=== PATIENT | male | born 1960 | race Caucasian/White ===

== ENCOUNTER 2020-04-09 13:16 | Emergency (ER) | payer OTHER, SELFPAY ==
--- NOTE | 2020-04-09 13:55 | XR_ITS ---
EXAMINATION: XR CHEST CLINICAL INFORMATION: Chest pain. COMPARISON: 10/23/18. TECHNIQUE: Frontal view of the chest was obtained. FINDINGS: No significant abnormality is noted involving the heart, lungs, mediastinum, bony thorax or soft tissues. XR/XR chest 1V IMPRESSION: Unremarkable examination.
--- NOTE | 2020-04-09 13:55 | ECG_ITS ---
Test Reason : CP Blood Pressure : / mmHG Vent. Rate : 089 BPM Atrial Rate : 089 BPM P-R Int : 178 ms QRS Dur : 094 ms QT Int : 382 ms P-R-T Axes : 029 067 031 degrees QTc Int : 464 ms Normal sinus rhythm Possible Left atrial enlargement Borderline ECG When compared with ECG of 07-JUN-2008 12:55, Heart rate has increased Referred By: Shyla Vance Electronically Signed By:TIANNA JAQUEZ MD
--- NOTE | 2020-04-09 13:56 | ED_ITS ---
HPI - Chest Pain General Chief Complaint: Chest Pain Stated Complaint: chest pain Time Seen by Provider: 04/09/20 13:54 Source: patient Mode of arrival: ambulatory Limitations: no limitations History of Present Illness HPI narrative: 60 y/o male with PMH of COPD, pre-diabetes, obesity, active heavy smoker, HLD presenting with non-radiating substernal chest pain that started yesterday at 2:30 pm while he was at work walking around. He describes it as aching, non-radiating. It was associated with some nausea and sweating when it started. He states laying down flat makes it better but it doesn't completely go away. He had knee surgery in February. No history of cardiac disease in himself or his family. No personal or family history of clots. Related Data Home Medications Medication Instructions Recorded Confirmed albuterol sulfate [ProAir HFA] 1 inh INHALATION QID PRN 04/09/20 04/09/20 gabapentin 300 mg PO DAILY 04/09/20 04/09/20 ibuprofen 800 mg PO Q8H PRN 04/09/20 04/09/20 latanoprost (PF) 1 drp OPHTHALMIC (EYE) QPM 04/09/20 04/09/20 umeclidinium-vilanterol [Anoro 1 inh INHALATION DAILY 04/09/20 04/09/20 Ellipta] valsartan-hydrochlorothiazide 1 tab PO DAILY 04/09/20 04/09/20 Previous Rx's Medication Instructions Recorded pantoprazole [Protonix] 40 mg PO DAILY #14 tab 04/09/20 Allergies Allergy/AdvReac Type Severity Reaction Status Date / Time hydrocodone [From VICODIN] Allergy Unknown GI UPSET Verified 04/09/20 14:17 irbesartan [IRBESARTAN] Allergy Unknown COUGH Verified 04/09/20 14:17 lisinopril [LISINOPRIL] Allergy Unknown COUGH Verified 04/09/20 14:17 Vicodin Allergy Unknown upset Uncoded 01/14/20 00:00 stomach Review of Systems Review of Systems: Constitutional: No Fever, No Chills ENT/Mouth: No sore throat, No Rhinorrhea, No Swallowing Difficulty Eyes: No Eye Pain, No Swelling, No Redness Cardiovascular: + Chest Pain, No SOB, No Orthopnea, No Edema Respiratory: + Cough, No Sputum, + Wheezing (intermittent, chronic due to sm oking) , No dyspnea Gastrointestinal: + Nausea, No Vomiting, No Diarrhea, No abdominal Pain Genitourinary: No Dysuria, No Urinary Frequency, No Hematuria Musculoskeletal: No joint pain, No Myalgias Skin: No Skin Lesions, No rash Neuro: No Weakness, No Numbness, No Dizziness, No Headache Psych: No Anxiety/Panic, No Depression Heme/Lymph: No Bruising, No Lymphadenopathy Endocrine: No Polyuria, No Polydipsia [facility] Past Medical History Attestation statement: The following information was validated with the patient. Medical History COPD (chronic obstructive pulmonary disease) HTN (hypertension) Pre-diabetes Surgical History (Updated 04/09/20 @ 14:15 by Mela Yu) Hx of left knee surgery Previous back surgery Social History Social History Alcohol intake: current Alcohol intake frequency: 3 or more drinks per day Alcohol type: beer Smoking Status: Current every day smoker Use of substances other than those prescribed or required for medical reasons: No Advance Directives: No Advance Directives Information Provided: Yes Physical Exam Vital Signs: Vital Signs: Last Vital Signs Temp 98.0 F 04/09/20 18:00 Pulse 89 04/09/20 18:00 Resp 18 04/09/20 18:00 BP 157/100 H 04/09/20 18:00 Pulse Ox 99 04/09/20 18:00 Body Mass Index 40.7 Appearance: Alert. Oriented X3. No acute distress. Eyes: Pupils equal, round and reactive to light. ENT: Pharynx normal. Neck: Normal inspection. Neck supple. CVS: Normal heart rate and rhythm. Pulses normal and equal. Respiratory: No respiratory distress. Breath sounds normal. Abdomen: Obese, rotund, Soft and nontender. +BS x4 Skin: Skin warm and dry. Normal skin color. Normal skin turgor. No rashes. Extremities: No lower extremity edema. Negative Willy's sign. Neuro: Oriented X 3. No motor deficit. No sensory deficit. Course Course Course Narrative: 60 y/o male with multiple comorbidities and cardiac risk factors presents with substernal chest pain x24 hours. EKG does not show STETMI. Need to r/o ACS and PE. Labs and CXR pending. Pain currently described as annoying and aching. He is not wanting anything for pain at this time. Will monitor closely. Dispo pending results and improvement. Reevaluation(s) Reevaluation #1: Troponin and Ddimer are negative which is reassuring against PE, ACS, aortic dissection. He reports the pain is slightly worse now, increases with movement and sitting upright. He takes 800 mg ibuprofen BID and drinks excessive amounts of coffee. Possible GERD or reflux causing the pain - will give GI cocktail and reassess. Time: 16:47 Reevaluation #2: Patient feels improved after GI cocktail. He is wanting to go home. He is agreeable to repeat troponin per protocol, 1st was 6.4. If no increase will plan to d/c home. Reevaluation #3: Troponin trended down. Patient reports continued improvement. He is stable for discharge and agrees to follow up with PCP next week. Strict return precautions discussed. MDM - Chest Pain Differential Diagnosis Differential diagnosis: Likely pneumothorax, stable angina, unstable angina pectoris, atypical chest pain, st elevation myocardial infarction, costochondritis, chest pain and biliary colic Medical Records Data Attestation: I reviewed the patient's medical records. Lab Data Attestation: I reviewed the patient's lab results. Result diagrams: 04/09/20 14:26 04/09/20 14:25 Labs: Lab Results 04/09/20 04/09/20 04/09/20 Range/Units 14:25 14:25 14:25 WBC (4.8-10.8) X10*3/uL RBC (4.60-5.80) X10*6/uL Hgb (14.0-18.0) g/dl Hct (42-52) % MCV (80-98) fL MCH (27.0-33.0) pg MCHC (31.0-36.0) g/dl RDW (11.0-16.0) % Plt Count (160-400) X10*3/uL MPV (9.4-12.4) fL Immature Gran % (Auto) (0.0-0.4) % Neut % (Auto) (45-73) % Lymph % (Auto) (20-40) % [place] % (Auto) (2-11) % Eos % (Auto) (0-4) % Baso % (Auto) (0-2) % Lymph # (Auto) (1.2-4.9) X10*3/uL [place] # (Auto) (0.1-1.2) X10*3/uL Eos # (Auto) (0.0-0.4) X10*3/uL Baso # (Auto) (0.0-0.2) X10*3/uL Abs Immat Gran (auto) (0.00-0.03) X10*3/uL Absolute Neuts (auto) (2.0-8.3) X10*3/uL Absolute Nucleated RBC (0.0-0.012) X10*3/uL Nucleated RBC % (auto) (0.0-0.2) /100WBC PT (10.8-13.0) SEC INR (0.9-1.1) APTT (24.1-38.0) SEC D-Dimer NG/ML Sodium 138 (135-145) mmol/L Potassium 3.9 (3.3-5.1) mmol/l Chloride 101 (96-108) mmol/L Carbon Dioxide 28 (22-29) mmol/L Anion Gap 13 (12-20) BUN 11 (9-16) mg/dL Creatinine 1.01 (0.5-1.4) mg/dL Estim Creat Clear Calc 97.9 Estimated GFR > 60 Random Glucose 98 (60-115) mg/dL Calcium 8.4 (8.4-10.2) mg/dL Total Bilirubin 0.8 (0.0-1.0) mg/dL Direct Bilirubin 0.3 (0.0-0.5) mg/dL AST 16 (5-37) U/L ALT 25 (0-40) U/L Alkaline Phosphatase 67 (39-117) U/L Troponin I High Sens 6.4 (<3.5-35.0) ng/L B-Natriuretic Peptide 172 H (<100) pg/mL Total Protein 7.2 (6.5-8.0) g/dL Albumin 4.2 (3.5-5.0) g/dL 04/09/20 04/09/20 04/09/20 Range/Units 14:26 14:26 18:05 WBC 8.0 (4.8-10.8) X10*3/uL RBC 5.09 (4.60-5.80) X10*6/uL Hgb 16.3 (14.0-18.0) g/dl Hct 48.4 (42-52) % MCV 95.1 (80-98) fL MCH 32.0 (27.0-33.0) pg MCHC 33.7 (31.0-36.0) g/dl RDW 11.9 (11.0-16.0) % Plt Count 261 (160-400) X10*3/uL MPV 9.4 (9.4-12.4) fL Immature Gran % (Auto) 0.5 H (0.0-0.4) % Neut % (Auto) 67.2 (45-73) % Lymph % (Auto) 21.6 (20-40) % [place] % (Auto) 9.0 (2-11) % Eos % (Auto) 1.1 (0-4) % Baso % (Auto) 0.6 (0-2) % Lymph # (Auto) 1.7 (1.2-4.9) X10*3/uL [place] # (Auto) 0.7 (0.1-1.2) X10*3/uL Eos # (Auto) 0.1 (0.0-0.4) X10*3/uL Baso # (Auto) 0.1 (0.0-0.2) X10*3/uL Abs Immat Gran (auto) 0.04 H (0.00-0.03) X10*3/uL Absolute Neuts (auto) 5.4 (2.0-8.3) X10*3/uL Absolute Nucleated RBC 0.000 (0.0-0.012) X10*3/uL Nucleated RBC % (auto) 0.0 (0.0-0.2) /100WBC PT 12.1 (10.8-13.0) SEC INR 1.0 (0.9-1.1) APTT 33.8 (24.1-38.0) SEC D-Dimer < 200 NG/ML Sodium (135-145) mmol/L Potassium (3.3-5.1) mmol/l Chloride (96-108) mmol/L Carbon Dioxide (22-29) mmol/L Anion Gap (12-20) BUN (9-16) mg/dL Creatinine (0.5-1.4) mg/dL Estim Creat Clear Calc Estimated GFR Random Glucose (60-115) mg/dL Calcium (8.4-10.2) mg/dL Total Bilirubin (0.0-1.0) mg/dL Direct Bilirubin (0.0-0.5) mg/dL AST (5-37) U/L ALT (0-40) U/L Alkaline Phosphatase (39-117) U/L Troponin I High Sens 6.1 (<3.5-35.0) ng/L B-Natriuretic Peptide (<100) pg/mL Total Protein (6.5-8.0) g/dL Albumin (3.5-5.0) g/dL ECG Data ECG #1: Attestation: I personally reviewed and interpreted this ECG as follows: ECG interpretation date: 04/09/20 ECG interpretation time: 13:23 Interpretation: normal sinus rhythm, HR 89, normal PA interval, no ST changes to suggest ischemia Scores Heart Score History: -1- moderately suspicious ECG: -0- normal Age: -1- >45 - <65 Risk factory: -2- 3 or more risk factors or treated atherosclerosis Discharge Plan Discharge Clinical Impression: Atypical chest pain Patient Disposition: Home, Self-Care Instructions: Chest Pain (ED) Additional Instructions: Your lab workup today was reassuring against life threatening causes of chest pain. Given your improvement in pain after medications for GI reflux, we will start you on a medication to help reduce the acid in your stomach. Decrease the amount of ibuprofen that you are taking. Ibuprofen can cause irritation of the stomach lining. If you develop worsening chest pain, difficulty breathing, chest pain associated with sweating, nausea, pain that travels to the neck or left arm call 911 or come back to the ER right away for evaluation. Follow up with your Primary Care Doctor Saturday. Stop smoking cigarettes, it is bad for your health and puts you at risk for a heart attack. Your blood pressure was elevated today. You need to get it rechecked by your doctor. Prescriptions: New pantoprazole [Protonix] 40 mg tablet,delayed release (DR/EC) 40 mg PO DAILY Qty: 14 RF: 0 No Action ibuprofen 800 mg Tablet 800 mg PO Q8H PRN (Reason: pain) RF: 0 valsartan-hydrochlorothiazide 160-12.5 mg Tablet 1 tab PO DAILY RF: 0 gabapentin 300 mg Capsule 300 mg PO DAILY RF: 0 albuterol sulfate [ProAir HFA] 90 mcg/actuation Hfa Aerosol Inhaler 1 inh INHALATION QID PRN (Reason: copd) RF: 0 Anoro Ellipta 62.5-25 mcg/actuation Blister With Device 1 inh INHALATION DAILY RF: 0 latanoprost (PF) 0.005 % Drops 1 drp OPHTHALMIC (EYE) QPM RF: 0
[2020-04-09 14:12] VITALS: BP 167/104; PULSE 78; RESP 20; TEMP 36.7; O2SAT 94; BMI 40.7
[2020-04-09 14:33] LABS: Basophils Absolute Auto 0.1 X10*3/uL (0.0-0.2); Basophils Percent Auto 0.6 % (0-2); Eosinophils Absolute Auto 0.1 X10*3/uL (0.0-0.4); Eosinophils Percent Auto 1.1 % (0-4); Hematocrit 48.4 % (42-52); Hemoglobin 16.3 g/dl (14.0-18.0); Imm Gran Abs Auto 0.04 X10*3/uL (0.00-0.03); Imm Gran Pct Auto 0.5 % (0.0-0.4); Lymphocytes Absolute Auto 1.7 X10*3/uL (1.2-4.9); Lymphocytes Percent Auto 21.6 % (20-40); MANUAL DIFF FLAG NO; Mean Corpuscular HGB Conc 33.7 g/dl (31.0-36.0); Mean Corpuscular Volume 95.1 fL (80-98); Mean Platelet Volume 9.4 fL (9.4-12.4); Monocytes Absolute Auto 0.7 X10*3/uL (0.1-1.2); Neutrophils Absolute Auto 5.4 X10*3/uL (2.0-8.3); Neutrophils Percent Auto 67.2 % (45-73); Platelet Count 261 X10*3/uL (160-400); Red Blood Count 5.09 X10*6/uL (4.60-5.80); Red Cell Distribution Width 11.9 % (11.0-16.0)
[2020-04-09 14:40] LABS: Prothrombin Time 12.1 SEC (10.8-13.0)
--- NOTE | 2020-04-09 14:42 | PC.NURSE ---
pt alert and oriented, skin pwd, respirations even and unlabored, ls clear, ns on the monitor. pt reports that yesterday started with midsternal chest pain, with some light nausea but no vomiting, no radiation
[2020-04-09 14:43] LABS: Partial Thromboplastin Time 33.8 SEC (24.1-38.0)
[2020-04-09 14:51] LABS: D Dimer < 200 NG/ML
[2020-04-09 14:54] LABS: Anion Gap 13 (12-20); Blood Urea Nitrogen 11 mg/dL (9-16); Calcium 8.4 mg/dL (8.4-10.2); Carbon Dioxide 28 mmol/L (22-29); Chloride 101 mmol/L (96-108); Creatinine Clr Calc Pharmacy 97.9; Estimated Glomerular Filt Rate > 60; Glucose Random 98 mg/dL (60-115); Potassium 3.9 mmol/l (3.3-5.1); Sodium 138 mmol/L (135-145)
[2020-04-09 14:56] LABS: Alanine Aminotransferase 25 U/L (0-40); Albumin Level 4.2 g/dL (3.5-5.0); Alkaline Phosphatase 67 U/L (39-117); Aspartate Amino Transferase 16 U/L (5-37); Bilirubin Direct 0.3 mg/dL (0.0-0.5); Bilirubin Total 0.8 mg/dL (0.0-1.0); Total Protein 7.2 g/dL (6.5-8.0)
[2020-04-09 15:22] VITALS: BP 167/100; PULSE 102; RESP 16; O2SAT 99
[2020-04-09 15:26] LABS: B Type Natriuretic Peptide 172 pg/mL (<100)
[2020-04-09 16:26] LABS: Troponin-I High Sensitivity 6.4 ng/L (<3.5-35.0)
[2020-04-09] MEDS: Lidocaine HCl Viscous 2 % 15 ML SOLUTION MUCOUS MEM (16:37)
[2020-04-09] MEDS: Magnesium Hydrox/Alum Hydrox 30 ML ORAL.SUSP PO (16:37)
[2020-04-09] MEDS: Omeprazole 40 MG CAPSULE.DR PO (16:37)
[2020-04-09 16:49] VITALS: BP 191/150; PULSE 98; RESP 16; TEMP 36.7; O2SAT 99
[2020-04-09 18:00] VITALS: BP 157/100; PULSE 89; RESP 18; TEMP 36.7; O2SAT 99
[2020-04-09 19:17] LABS: Troponin-I High Sensitivity 6.1 ng/L (<3.5-35.0)
== END 2020-04-09 19:34 | disposition home or self-care (01) ==
PROVIDERS: Physician Assistant; Emergency Provider Emergency Medicine; PCP Internal Medicine
DX: R07.9 Chest pain, unspecified (principal); J44.9 Chronic obstructive pulmonary disease, unspecified; I10 Essential (primary) hypertension; F17.200 Nicotine dependence, unspecified, uncomplicated; Z71.6 Tobacco abuse counseling; Z79.899 Other long term (current) drug therapy
CPT/HCPCS: 36415; 71045; 80048; 80076; 83880; 84484; 85025; 85379; 85610; 85730; 93005; 99283; 99285

== ENCOUNTER 2020-07-01 14:30 | Outpatient (REF) | payer OTHER, SELFPAY | END 2020-07-01 14:31 | disposition home or self-care (01) | LOC: HO.LAB 14:30 | PROVIDERS: PCP Internal Medicine; Visit Provider Internal Medicine | DX: Z20.822 Contact with and (suspected) exposure to COVID-19 (principal) | CPT/HCPCS: 36415; C9803; U0003 ==

== ENCOUNTER 2020-11-28 10:31 | Outpatient (REF) | payer OTHER, SELFPAY ==
[2020-11-28 10:36] LABS: MANUAL DIFF FLAG NO
[2020-11-28 11:48] LABS: Basophils Absolute Auto 0.1 X10*3/uL (0.0-0.2); Basophils Percent Auto 0.5 % (0-2); Eosinophils Absolute Auto 0.2 X10*3/uL (0.0-0.4); Eosinophils Percent Auto 1.6 % (0-4); Hematocrit 47.6 % (42-52); Hemoglobin 15.6 g/dl (14.0-18.0); Imm Gran Abs Auto 0.07 X10*3/uL (0.00-0.03); Imm Gran Pct Auto 0.7 % (0.0-0.4); Lymphocytes Absolute Auto 2.1 X10*3/uL (1.2-4.9); Lymphocytes Percent Auto 20.4 % (20-40); Mean Corpuscular HGB Conc 32.8 g/dl (31.0-36.0); Mean Corpuscular Hemoglobin 31.6 pg (27.0-33.0); Mean Corpuscular Volume 96.4 fL (80-98); Mean Platelet Volume 10.2 fL (9.4-12.4); Monocytes Percent Auto 9.4 % (2-11); Neutrophils Absolute Auto 6.8 X10*3/uL (2.0-8.3); Neutrophils Percent Auto 67.4 % (45-73); Platelet Count 238 X10*3/uL (160-400); Red Blood Count 4.94 X10*6/uL (4.60-5.80); Red Cell Distribution Width 13.2 % (11.0-16.0); White Blood Count 10.1 X10*3/uL (4.8-10.8)
[2020-11-28 12:10] LABS: Estimated Average Glucose 105 mg/dL; Hemoglobin A1c % 5.3 %
[2020-11-28 12:45] LABS: Alanine Aminotransferase 17 U/L (0-40); Albumin Level 4.1 g/dL (3.5-5.0); Alkaline Phosphatase 73 U/L (39-117); Anion Gap 13 (12-20); Aspartate Amino Transferase 16 U/L (5-37); Bilirubin Total 0.5 mg/dL (0.0-1.0); Blood Urea Nitrogen 14 mg/dL (9-16); Calcium 9.1 mg/dL (8.4-10.2); Carbon Dioxide 26 mmol/L (22-29); Chloride 105 mmol/L (96-108); Cholesterol 186 mg/dL; Estimated Glomerular Filt Rate > 60; Glucose Fasting 95 mg/dL (60-99); HDL Cholesterol 50 mg/dL; LDL Cholesterol Calculated 113 mg/dl; Potassium 4.2 mmol/L (3.3-5.1); Sodium 140 mmol/L (135-145); Triglycerides 119 mg/dL
[2020-11-28 12:55] LABS: PSA,Total (Free>4and<10) 0.43 ng/mL (0.00-4.00)
[2020-11-28 13:01] LABS: Glucose Urine UA NEG (NEG); Leukocyte Esterase Urine NEG (NEG); Nitrite Urine NEG (NEG); Specific Gravity - Urine >= 1.030 (1.005-1.025); Urine Blood NEG (NEG); Urine Ketones NEG (NEG); Urine Protein NEG (NEG-TRACE)
[2020-11-28 13:02] LABS: Appearance Urine CLEAR; Color Urine YELLOW
[2020-11-28 13:47] LABS: Creatinine Urine 308.94 mg/dL; Microalbum/Creatinine Ratio Ur 3.5 ug/mg cr
== END 2020-11-28 10:32 | disposition home or self-care (01) ==
LOC: HO.LNP 10:31
PROVIDERS: Visit Provider Internal Medicine
DX: Z00.00 Encounter for general adult medical examination without abnormal findings (principal); Z12.5 Encounter for screening for malignant neoplasm of prostate; I10 Essential (primary) hypertension; R73.03 Prediabetes
CPT/HCPCS: 80053; 80061; 81003; 82043; 83036; 84153; 85025

== ENCOUNTER 2021-01-20 15:15 | Outpatient (REF) | payer OTHER, SELFPAY ==
--- NOTE | ~2021-01-20 | CT_ITS ---
EXAMINATION: CT CHEST SCREENING CLINICAL INFORMATION: Smoking history COMPARISON: Previous chest x-ray April 2020 TECHNIQUE: Multidetector volumetric CT imaging of the chest is performed without contrast using low dose technique. Additional 2D coronal and sagittal reformatted images and axial 3D maximum intensity projection (MIP) images are generated on the CT workstation. This CT examination was performed using dose optimization techniques as appropriate, variously including the following: *Automated exposure control *Adjustment of mA and/or kV according to patient size (this includes techniques or standardized protocols for targeted exams where dose is matched to indication/reason for exam; i.e. extremities or head) *Use of iterative reconstruction technique DLP: 69 mGy-cm FINDINGS: LUNGS: There is linear scarring or subsegmental atelectasis at the lung bases. The lungs are otherwise clear. No endobronchial or endotracheal lesion is seen. MEDIASTINUM: The mediastinum is normal. PLEURA: There is no pleural effusion. No pleural mass or thickening. AXILLA: No lymphadenopathy. UPPER ABDOMEN: Unremarkable OSSEOUS STRUCTURES: There are degenerative changes of the spine. CT/CT lung screening IMPRESSION: Unremarkable examination. ASSESSMENT: Lung-RADS category 1: Negative RECOMMENDATION: Annual low-dose chest CT follow-up recommended.
== END 2021-01-20 15:16 | disposition home or self-care (01) ==
LOC: HO.CT 15:15
PROVIDERS: Visit Provider Physician Assistant Medical
DX: Z12.2 Encounter for screening for malignant neoplasm of respiratory organs (principal); F17.210 Nicotine dependence, cigarettes, uncomplicated
CPT/HCPCS: 71271

== ENCOUNTER 2021-12-05 10:46 | Outpatient (REF) | payer OTHER, SELFPAY ==
[2021-12-05 10:51] LABS: MANUAL DIFF FLAG NO
[2021-12-05 11:30] LABS: Appearance Urine CLEAR; Color Urine YELLOW; Glucose Urine UA NEG (NEG); Leukocyte Esterase Urine NEG (NEG); Nitrite Urine NEG (NEG); Specific Gravity - Urine >= 1.030 (1.005-1.025); Urine Blood NEG (NEG); Urine Ketones NEG (NEG); Urine Protein NEG (NEG-TRACE)
[2021-12-05 11:50] LABS: Basophils Absolute Auto 0.1 X10*3/uL (0.0-0.2); Basophils Percent Auto 0.6 % (0-2); Eosinophils Absolute Auto 0.1 X10*3/uL (0.0-0.4); Eosinophils Percent Auto 1.7 % (0-4); Hematocrit 46.5 % (42.0-52.0); Hemoglobin 15.3 g/dl (14.0-18.0); Imm Gran Abs Auto 0.07 X10*3/uL (0.00-0.03); Imm Gran Pct Auto 0.9 % (0.0-0.4); Lymphocytes Absolute Auto 1.9 X10*3/uL (1.2-4.9); Mean Corpuscular HGB Conc 32.9 g/dl (31.0-36.0); Mean Corpuscular Hemoglobin 31.2 pg (27.0-33.0); Mean Corpuscular Volume 94.9 fL (80.0-98.0); Mean Platelet Volume 10.2 fL (9.4-12.4); Monocytes Absolute Auto 0.7 X10*3/uL (0.1-1.2); Monocytes Percent Auto 9.1 % (2-11); Neutrophils Absolute Auto 5.3 x10*3/uL (2.0-8.3); Neutrophils Percent Auto 64.7 % (45-73); Platelet Count 266 X10*3/uL (160-400); Red Cell Distribution Width 13.2 % (11.0-16.0); White Blood Count 8.1 X10*3/uL (4.8-10.8)
[2021-12-05 11:56] LABS: Estimated Average Glucose 100 mg/dL; Hemoglobin A1c % 5.1 %
[2021-12-05 12:06] LABS: Calcium Oxalate Crystals Urine TRACE /LPF; RBC Urine 0 /HPF (0); Squamous Epithelial Cell Urine TRACE /LPF; WBC Urine 0 /HPF (0-4)
[2021-12-05 12:28] LABS: PSA,Total (Free>4and<10) 0.56 ng/mL (0.00-4.00)
[2021-12-05 12:30] LABS: Alanine Aminotransferase 26 U/L (0-40); Albumin Level 4.4 g/dL (3.5-5.0); Alkaline Phosphatase 72 U/L (39-117); Anion Gap 13 (12-20); Aspartate Amino Transferase 20 U/L (5-37); Bilirubin Total 0.5 mg/dL (0.0-1.0); Blood Urea Nitrogen 23 mg/dL (9-16); Calcium 9.2 mg/dL (8.4-10.2); Carbon Dioxide 23 mmol/L (22-29); Chloride 109 mmol/L (96-108); Cholesterol 200 mg/dL; Estimated Glomerular Filt Rate > 60; Glucose Fasting 112 mg/dL (60-99); HDL Cholesterol 46 mg/dL; LDL Cholesterol Calculated 135 mg/dl; Potassium 4.2 mmol/L (3.3-5.1); Sodium 141 mmol/L (135-145); Total Protein 7.6 g/dL (6.5-8.0); Triglycerides 99 mg/dL
[2021-12-05 13:38] LABS: Creatinine Urine 228.53 mg/dL
[2021-12-05 14:11] LABS: Microalbum/Creatinine Ratio Ur 6.1 ug/mg cr
== END 2021-12-05 10:47 | disposition home or self-care (01) ==
LOC: HO.LNP 10:46
PROVIDERS: PCP Internal Medicine; Visit Provider Internal Medicine
DX: Z00.00 Encounter for general adult medical examination without abnormal findings (principal); Z12.5 Encounter for screening for malignant neoplasm of prostate; I10 Essential (primary) hypertension; R73.03 Prediabetes; Z86.2 Personal history of diseases of the blood and blood-forming organs and certain disorders involving the immune mechanism
CPT/HCPCS: 80053; 80061; 81001; 82043; 83036; 84153; 85025

== ENCOUNTER 2022-12-11 10:24 | Outpatient (REF) | payer OTHER, SELFPAY ==
[2022-12-11 10:27] LABS: MANUAL DIFF FLAG NO
[2022-12-11 10:39] LABS: Basophils Absolute Auto 0.1 X10*3/uL (0.0-0.2); Basophils Percent Auto 0.7 % (0-2); Eosinophils Absolute Auto 0.2 X10*3/uL (0.0-0.4); Eosinophils Percent Auto 3.3 % (0-4); Hematocrit 44.3 % (42.0-52.0); Hemoglobin 14.9 g/dl (14.0-18.0); Imm Gran Abs Auto 0.06 X10*3/uL (0.00-0.03); Imm Gran Pct Auto 0.9 % (0.0-0.4); Lymphocytes Absolute Auto 1.9 X10*3/uL (1.2-4.9); Mean Corpuscular HGB Conc 33.6 g/dl (31.0-36.0); Mean Corpuscular Hemoglobin 31.7 pg (27.0-33.0); Mean Corpuscular Volume 94.3 fL (80.0-98.0); Mean Platelet Volume 10.7 fL (9.4-12.4); Monocytes Absolute Auto 0.7 X10*3/uL (0.1-1.2); Monocytes Percent Auto 9.6 % (2-11); Neutrophils Percent Auto 57.5 % (45-73); Platelet Count 241 X10*3/uL (160-400); Red Cell Distribution Width 12.8 % (11.0-16.0); White Blood Count 6.9 X10*3/uL (4.8-10.8)
[2022-12-11 10:53] LABS: Alanine Aminotransferase 19 U/L (0-40); Albumin Level 4.1 g/dL (3.5-5.0); Alkaline Phosphatase 63 U/L (39-117); Anion Gap 15 (12-20); Aspartate Amino Transferase 15 U/L (5-37); Bilirubin Total 0.6 mg/dL (0.0-1.0); Blood Urea Nitrogen 21 mg/dL (9-16); Calcium 9.9 mg/dL (8.4-10.2); Carbon Dioxide 23 mmol/L (22-29); Chloride 106 mmol/L (96-108); Cholesterol 177 mg/dL; Estimated Glomerular Filt Rate > 60; Glucose Fasting 107 mg/dL (60-99); HDL Cholesterol 46 mg/dL; LDL Cholesterol Calculated 116 mg/dl; Sodium 140 mmol/L (135-145); Total Protein 7.1 g/dL (6.5-8.0); Triglycerides 78 mg/dL
[2022-12-11 10:55] LABS: Appearance Urine Clear; Color Urine Yellow; Glucose Urine UA Negative (Negative); Leukocyte Esterase Urine Negative (Negative); Nitrite Urine Negative (Negative); PH 6.5 (5.0-9.0); Urine Blood Negative (Negative); Urine Ketones Negative (Negative); Urine Protein Negative (Neg-Trace)
[2022-12-11 10:58] LABS: Bacteria Urine None Seen (None Seen); Hyaline Casts Urine 0-2 /LPF (0-2); RBC Urine 0-2 /HPF (0-2); Squamous Epithelial Cell Urine 0-2 /HPF (0-2); WBC Urine 0-5 /HPF (0-5)
[2022-12-11 11:09] LABS: PSA,Total (Free>4and<10) 0.59 ng/mL (0.00-4.00)
[2022-12-11 11:11] LABS: Estimated Average Glucose 97 mg/dL
[2022-12-11 12:15] LABS: Creatinine Urine 105.62 mg/dL; Microalbumin Urine < 5.0 mg/L
== END 2022-12-11 10:25 | disposition home or self-care (01) ==
LOC: HO.LNP 10:24
PROVIDERS: PCP Internal Medicine; Visit Provider Internal Medicine
DX: Z00.00 Encounter for general adult medical examination without abnormal findings (principal); I10 Essential (primary) hypertension; R73.09 Other abnormal glucose; Z86.2 Personal history of diseases of the blood and blood-forming organs and certain disorders involving the immune mechanism; Z12.5 Encounter for screening for malignant neoplasm of prostate
CPT/HCPCS: 80053; 80061; 81001; 82043; 83036; 84153; 85025

== ENCOUNTER 2022-12-31 08:22 | Outpatient (AMB) | payer OTHER, SELFPAY ==
--- NOTE | 2022-12-31 08:29 | A.OFFVIS_ITS ---
Intake Vital Signs 12/31/22 08:36 Height 5 ft 7 in Weight 230 lb BMI 36.0 Intake Visit Reasons: Newprob-Right shoulder pain Intake Note: Tima a 62 year old right hand dominant male who presents today with complaints of right shoulder pain. Patient reports 12-13 weeks, denies injury. His pain radiates to the back of his neck. He has a constant dull ache. He uses CBD topical cream that provides relief. Denies numbness or tingling. No previous tx. Allergies hydrocodone [From VICODIN] Allergy (Unknown, Verified 12/31/22 08:36) GI UPSET irbesartan [IRBESARTAN] Allergy (Unknown, Verified 12/31/22 08:36) COUGH lisinopril [LISINOPRIL] Allergy (Unknown, Verified 12/31/22 08:36) COUGH Vicodin Allergy (Unknown, Uncoded 12/31/22 08:36) upset stomach Medication List - Last Reconciled 12/31/22 by Kerry Naylor PA-C albuterol sulfate 90 mcg/actuation (ProAir HFA) 1 inh inhalation QID PRN gabapentin 300 mg PO DAILY ibuprofen 800 mg PO Q8H PRN latanoprost (PF) 0.005% 1 drp ophthalmic (eye) QPM pantoprazole (Protonix) 40 mg PO DAILY umeclidinium-vilanterol 62.5-25 mcg/actuation (Anoro Ellipta) 1 inh inhalation DAILY valsartan-hydrochlorothiazide 160-12.5 mg 1 tab PO DAILY HPI Newprob-Right shoulder pain HPI Details 62-year-old male who presents to the office today for evaluation of right shoulder pain for about 3 months. He states he has constant dull aching pain in his right shoulder which radiates to the back of his neck. His pain is aggravated with reaching back, weight bearing and sleeping on either side of his shoulder. He finds relief with CBD topical cream. He denies any numbness, tingling or injury and has not had any treatment in the past. He has a history of prediabetes. He works in [employer] department at [employer]. [facility] Medical History COPD (chronic obstructive pulmonary disease) HTN (hypertension) Obesity Personal history of nicotine dependence Pre-diabetes Snoring Surgical History History of colonoscopy (~03/2019) History of lumbar spinal fusion History of meniscectomy of left knee (~02/2020) History of tonsillectomy Family History (Updated 01/20/21 @ 15:20 by Jihan Narvaez PA-C) Father Lung cancer Social History (Updated 12/31/22 @ 08:38 by FEMRIN Bradley) Alcohol intake: current Alcohol intake frequency: 3 or more drinks per day Alcohol type: beer Patient Tobacco Use Status: Current everyday Tobacco user Cigarette Packs Per Day: 2 Years Smoked: 46 (onset 16, 1-2ppd x 44yrs - 60+PYH) Current occupational status: employed Current occupation: maintenance- right hand dominant Review of Systems Const All systems reviewed & are unremarkable except as noted in HPI and below Physical Exam Vital Signs: BMI result Body Mass Index 36.0 Const General: cooperative and no acute distress Orientation/consciousness: patient oriented x3 Resp Effort & Inspection: normal respiratory effort and able to speak in complete sentences Cardio Peripheral pulses: Peripheral pulses 2+ throughout Neuro General: patient oriented x3 Extrem Other: Right shoulder normal to inspection. Tenderness over the bicipital groove and along the deltoid region of the shoulder. Forward flexion to 175, external rotation to 90, internal rotation to S1. 5/5 RTC strength. He does have discomfort with external rotation against resistance and empty can testing with compensation. Positive cross body abduction. NVI. Office Procedures Joint Injection/Drain Joint Injection/Drain Primary Site: right shoulder Prep: site was prepped using aseptic technique, ethochloride spray was applied and injection warnings given Injected: 80 mg of, DepoMedrol, with 8 mL of, 1% plain lidocaine and in the subcromial space Approach Used: posterolateral Procedure: The patient tolerated the procedure well and there was some relief with the local anesthesia Coding 21154 - Glenohumeral/Tronchanteric Bursa/Intraarticular Procedure code (CPT) selection complete Results Reviewed Results Reviewed: 12/31/22 08:53 Lidocaine HCl 2 % MPF [Xylocaine 2 % MPF] 5 ml .ROUTE .STK-MED ONE methylPREDNISolone acetate [DEPO-MedroL] 80 mg .ROUTE .STK-MED ONE Xrays were obtained in the office today and personally reviewed by me of the right shoulder show well preserved joint space, no acute fracture or dislocation. Assessment & Plan Assessment & Plan (1) Tendinitis of right rotator cuff: Code(s): M75.81 - Other shoulder lesions, right shoulder Plan We discussed options today which include steroid injection. They did consent to move forward with the right shoulder injection, which was tolerated well. I recommended rest, ice and elevation and OTC anti-inflammatories PRN for discomfort. He was also given a handout of home exercises in the office today. If symptoms persist or worsens over the next 6-8 weeks, patient will contact the office, otherwise follow-up as needed. Orders: Orders XR shoulder RT min 2V Today M25.511 - Pain in right shoulder Patient Instructions: Scribed for Kerry Naylor PA-C, by Migel Martinez nuclear medical technologist, on 12/31/2022 at 8:30 AM EST. I, Kerry Naylor PA-C, have personally reviewed and agree with the information entered by the scribe. Coding Level of Care Code New Pt Level 3 (40292) Diagnoses Tendinitis of right rotator cuff M75.81 CPT Codes Coding - Joint 7: 18660 - Glenohumeral/Tronchanteric Bursa/Intraarticular ([id number])
[2022-12-31 08:36] VITALS: BMI 36.0
== END 2022-12-31 09:04 | disposition home or self-care (01) ==
PROVIDERS: PCP Internal Medicine; Visit Provider Physician Assistant
DX: M75.81 Other shoulder lesions, right shoulder (principal)
CPT/HCPCS: 20610; 99203

== ENCOUNTER 2022-12-31 08:44 | Outpatient (REF) | payer OTHER, SELFPAY ==
--- NOTE | ~2022-12-31 | XR_ITS ---
EXAMINATION: XR SHOULDER, RIGHT CLINICAL INFORMATION: Pain in right shoulder COMPARISON: None available. TECHNIQUE: 3 views of the right shoulder FINDINGS: The bones and soft tissues are normal. No fracture. Glenohumeral and acromioclavicular alignment is anatomic with normal joint space. No abnormal soft tissue calcifications. XR/XR shoulder RT min 2V IMPRESSION: Normal right shoulder.
== END 2022-12-31 08:45 | disposition home or self-care (01) ==
LOC: HO.HOSX 08:44
PROVIDERS: Visit Provider Physician Assistant
DX: M75.81 Other shoulder lesions, right shoulder (principal)
CPT/HCPCS: 20610; 73030; J1040

== ENCOUNTER 2023-06-30 10:28 | Outpatient (REF) | payer OTHER, SELFPAY | END 2023-06-30 10:29 | disposition home or self-care (01) | LOC: HO.HOSX 10:28 | PROVIDERS: Visit Provider Physician Assistant | DX: Z13.89 Encounter for screening for other disorder (principal) ==

== ENCOUNTER 2023-12-16 16:13 | Outpatient (REF) | payer OTHER, SELFPAY ==
--- NOTE | ~2023-12-16 | CT_ITS ---
EXAMINATION: CT LOW-DOSE SCREENING CHEST WITHOUT CONTRAST CLINICAL INFORMATION: Nicotine dependence, cigarettes, uncomplicated. The patient is a current smoker with a 100 pack-year history of smoking. COMPARISON: CT chest January 20, 2021, x-ray chest April 09, 2020. TECHNIQUE: Multidetector volumetric CT imaging of the chest is performed on a Siemens SOMATOM Definition scanner without contrast using low dose technique. Additional 2D coronal and sagittal reformatted images and axial 3D maximum intensity projection (MIP) images are generated on the CT workstation. This CT examination was performed using dose optimization techniques as appropriate, variously including the following: *Automated exposure control. *Adjustment of mA and/or kV according to patient size (this includes techniques or standardized protocols for targeted exams where dose is matched to indication/reason for exam; i.e. extremities or head). *Use of iterative reconstruction technique. TOTAL EXAM DLP: 70 mGy-cm. CTDIvol: 2.10 mGy. FINDINGS: PULMONARY NODULES: No suspicious pulmonary nodules. LUNGS: Lungs bilaterally symmetrically expanded. There is mild emphysema and bronchial thickening. No effusion or pneumothorax. Central airways patent. MEDIASTINUM: No mediastinal, hilar or axillary adenopathy or free fluid collection. CORONARY ARTERY CALCIFICATION: None visualized on this study. THYROID GLAND: Unremarkable to the extent seen. CARDIOVASCULAR STRUCTURES: Aortic and heart size normal. No pericardial effusion. CHEST WALL/AXILLA: Unremarkable. UPPER ABDOMEN: Included portions of the solid organs in the upper abdomen unremarkable on noncontrast imaging. OSSEOUS STRUCTURES: No suspicious focal findings. CT/CT lung screening IMPRESSION: Unremarkable examination. ASSESSMENT: 1. Lung-RADS Category 1: Negative. There are no nodules or there are definitely benign nodules. N/A. 2. Lung-RADS Category S: Negative. There are no clinically significant or potentially clinically significant findings not related to the lungs requiring urgent additional evaluation. RECOMMENDATION: Continued routine annual low-dose CT lung screening in 1 year is recommended. An order for CT CHEST LOW DOSE CANCER SCREENING ([id number]) can be placed. Electronically signed by: Kristopher Saul MD 02/10/2024 10:32 PM EDT
== END 2023-12-16 16:14 | disposition home or self-care (01) ==
LOC: HO.CT 16:13
PROVIDERS: PCP Internal Medicine; Visit Provider Physician Assistant Medical
DX: Z12.2 Encounter for screening for malignant neoplasm of respiratory organs (principal); F17.210 Nicotine dependence, cigarettes, uncomplicated
CPT/HCPCS: 71271

== ENCOUNTER 2023-12-19 10:53 | Outpatient (REF) | payer OTHER, SELFPAY ==
[2023-12-19 10:56] LABS: MANUAL DIFF FLAG NO
[2023-12-19 11:09] LABS: Basophils Absolute Auto 0.1 X10*3/uL (0.0-0.2); Basophils Percent Auto 0.8 % (0-2); Eosinophils Absolute Auto 0.2 X10*3/uL (0.0-0.4); Eosinophils Percent Auto 3.9 % (0-4); Hematocrit 44.2 % (42.0-52.0); Hemoglobin 15.2 g/dl (14.0-18.0); Imm Gran Abs Auto 0.04 X10*3/uL (0.00-0.03); Imm Gran Pct Auto 0.7 % (0.0-0.4); Lymphocytes Absolute Auto 1.6 X10*3/uL (1.2-4.9); Lymphocytes Percent Auto 26.1 % (20-40); Mean Corpuscular HGB Conc 34.4 g/dl (31.0-36.0); Mean Corpuscular Hemoglobin 32.5 pg (27.0-33.0); Mean Corpuscular Volume 94.6 fL (80.0-98.0); Mean Platelet Volume 10.1 fL (9.4-12.4); Monocytes Absolute Auto 0.6 X10*3/uL (0.1-1.2); Monocytes Percent Auto 9.2 % (2-11); Neutrophils Absolute Auto 3.6 x10*3/uL (2.0-8.3); Neutrophils Percent Auto 59.3 % (45-73); Platelet Count 220 X10*3/uL (160-400); Red Blood Count 4.67 X10*6/uL (4.60-5.80); Red Cell Distribution Width 12.6 % (11.0-16.0); White Blood Count 6.1 X10*3/uL (4.8-10.8)
[2023-12-19 11:10] LABS: Appearance Urine Clear; Color Urine Yellow; Glucose Urine UA Negative (Negative); Leukocyte Esterase Urine Negative (Negative); Nitrite Urine Negative (Negative); PH 7.5 (5.0-9.0); Urine Blood Negative (Negative); Urine Ketones Negative (Negative); Urine Protein Negative (Neg-Trace)
[2023-12-19 11:17] LABS: Bacteria Urine None Seen (None Seen); Hyaline Casts Urine 0-2 /LPF (0-2); RBC Urine 0-2 /HPF (0-2); Squamous Epithelial Cell Urine 0-2 /HPF (0-2); WBC Urine 0-5 /HPF (0-5)
[2023-12-19 11:20] LABS: Estimated Average Glucose 94 mg/dL; Hemoglobin A1c % 4.9 % (<6.0)
[2023-12-19 11:21] LABS: Alanine Aminotransferase 22 U/L (0-40); Albumin Level 4.3 g/dL (3.5-5.0); Alkaline Phosphatase 57 U/L (39-117); Anion Gap 15 (12-20); Aspartate Amino Transferase 21 U/L (5-37); Bilirubin Total 0.9 mg/dL (0.0-1.0); Blood Urea Nitrogen 17 mg/dL (9-16); Calcium 9.6 mg/dL (8.4-10.2); Carbon Dioxide 23 mmol/L (22-29); Chloride 106 mmol/L (96-108); Cholesterol 185 mg/dL (<200); Estimated Glomerular Filt Rate > 60; Glucose Fasting 94 mg/dL (60-99); HDL Cholesterol 49 mg/dL (>40); LDL Cholesterol Calculated 114 mg/dL (<100); Potassium 3.9 mmol/L (3.3-5.1); Sodium 140 mmol/L (135-145); Total Protein 7.5 g/dL (6.5-8.0); Triglycerides 114 mg/dL (<150)
[2023-12-19 11:34] LABS: Microalbumin Urine < 5.0 mg/L
== END 2023-12-19 10:54 | disposition home or self-care (01) ==
LOC: HO.LNP 10:53
PROVIDERS: Visit Provider Internal Medicine
DX: Z00.00 Encounter for general adult medical examination without abnormal findings (principal); I10 Essential (primary) hypertension; Z86.2 Personal history of diseases of the blood and blood-forming organs and certain disorders involving the immune mechanism; R73.09 Other abnormal glucose; Z12.5 Encounter for screening for malignant neoplasm of prostate
CPT/HCPCS: 80053; 80061; 81001; 82043; 82570; 83036; 84153; 85025

== ENCOUNTER 2024-12-25 10:05 | Outpatient (REF) | payer OTHER, SELFPAY ==
[2024-12-25 10:10] LABS: MANUAL DIFF FLAG NO
[2024-12-25 10:25] LABS: Hematocrit 43.6 % (42.0-52.0); Hemoglobin 14.9 g/dl (14.0-18.0); Imm Gran Abs Auto 0.04 X10*3/uL (0.00-0.03); Imm Gran Pct Auto 0.7 % (0.0-0.4); Lymphocytes Absolute Auto 1.6 X10*3/uL (1.2-4.9); Mean Corpuscular HGB Conc 34.2 g/dl (31.0-36.0); Mean Corpuscular Hemoglobin 32.5 pg (27.0-33.0); Mean Corpuscular Volume 95.0 fL (80.0-98.0); NRBC Abs Auto 0.000 X10*3/uL (0.0-0.012); NRBC Pct Auto 0.0 /100WBC (0.0-0.2); Platelet Count 226 X10*3/uL (160-400); Red Blood Count 4.59 X10*6/uL (4.60-5.80); White Blood Count 5.7 X10*3/uL (4.8-10.8)
--- OUTSIDE RECORDS SUMMARY | 2024-12-25 10:25 | XMS_ITS | Patient Health Record ---
Author Organization Garrett Ferreira MD Address [address] [place], [place] [phone] Care Team Providers Care Sales Store Checker Name Role Phone Garrett Ferreira Primary Care Provider Allergies Allergen (clinical drug ingredient) Drug/Non Drug Allergy documented on EMR Reaction Allergy Type Onset Date Status lisinopril Lisinopril cough Drug Allergy Activ e irbesartan Irbesartan cough Drug Allergy Activ e Reason For Referral No Information Medications Medication SIG (Take, Route, Frequency, Duration) Notes Start Date End Date Status Gabapentin 300 MG TAKE 1 CAPSULE BY MOUTH TWICE A DAY ORALLY TWICE A DAY 90 DAYS for 90 Active Ventolin HFA 108 (90 Base) MCG/ACT TAKE 1 TO 2 PUFFS EVERY 4 TO 6 HOURS NEEDEED FOR BREATHING for 17 Not-Taking Pantoprazole Sodium 40 MG 1 tablet Orall y Once a day for 30 day(s) Not-Taking Celecoxib 200 MG TAKE 1 CAPSULE BY MOUTH EVERY DAY WITH FOOD for 30 Active Nasacort Allergy 24HR 55 MCG/ACT 2 sprays in each nostril Nasally Once a day Not-Taking Albuterol Sulfate HFA 108 (9 0 Base) MCG/ACT 2 puffs as needed Inhalation every 6 hrs Not-Taking hydroCHLOROthiazide 25 MG TAKE 1 TABLET BY MOUTH EVERY DAY IN THE MORNING for 90 Active ProAir HFA 108 (90 Base) MCG/ACT 1 puff as needed Inhalation every 4 hrs 12/08/2020 Active Ventolin HFA * 108 (90 Base) MCG/ACT 2 puffs as needed Inhalation every 4 hrs for 17 Not-Taking Latanoprost 0.005 % 1 drop into affected eye in the evening Ophthalmic Once a day Active Albuterol Sulfate (2.5 MG/3ML) 0.083% 3 ml as needed Inhalation every 6 hrs Not-Taking Valsartan 320 MG TAKE 1 TABLET BY MOUTH EVERY DAY for 90 Active Anoro Ellipta 62.5-25 MCG/ACT INHALE 1 P UFF INTO THE LUNGS EVERY DAY for 30 Active Immunizations Vaccine Route Administration Date Status Comme nts Flu Vaccine IM Intramuscular 07/01/2012 Administered Flu Vaccine IM Intramuscular 03/09/2013 Administered Fluarix Quadrivalent IM Intramuscular 02/18/2014 Administe red PPSV23 (Pnemovax) IM Intramuscular 10/04/2014 Administered Fluarix Quadrivalent IM Intramuscular 03/24/2015 Administe red Fluarix Quadrivalent IM Intramuscular 05/08/2016 Administe red Fluarix Quadrivalent Unknown 03/18/2017 Administered Ri te Aide Fluarix Quadrivalent IM Intramuscular 05/23/2018 Administe red Prevnar 13 IM Intramuscular 11/04/2018 Administered Fluarix Quadrivalent IM Intramuscular 05/21/2019 Administe red PPSV23 (Pnemovax) IM Intramuscular 12/22/2019 Administered Fluarix Quadrivalent Unknown 02/21/2020 Administered CV S SARS-COV-2 Moderna Unknown 08/16/2020 Administered SARS-COV-2 Moderna Unknown 09/13/2020 Administered Fluarix Quadrivalent Unknown 03/04/2021 Administered CV S SARS-COV-2 Moderna Unknown 07/20/2021 Administered Fluarix Quadrivalent Unknown 03/22/2023 Administered CV S Flu Vaccine Unknown 02/18/2014 Pending Social History Tobacco Use: Social History Observation [...] Never (0 point) Points 5 Interpretation Positive Problems Problem Type SNOMED Code ICD Code Onset Dates Problem Status W/U Status Risk Notes Problem 1760018 Panlobular emphysema (J43.1) Active confirmed Problem Disorder of lumbar disc (113225870) Lumbar disc disease (M51.9) Active confirmed Problem 14175722 Essential hypertension (I10) Active confirmed Problem 6117371 Prediabetes (R73.09) Active confirmed Problem 632050581 History of lymphocytosis (Z86.2) Active confirmed Problem 19606236 MICHAEL (obstructive sleep apnea) (G47.33) Active confirmed Problem 523412266 BMI 39.0-39.9,adult (Z68.39) Active confirmed Problem 11250840 Smoker unmotivated to quit (F17.200) Active confirmed Problem 949344959 COPD with exacerbation (J44.1) Active confirmed Problem 00953488 Muscle twitching (R25.3) Active confirmed Problem 14849411 Hyperplastic polyp of sigmoid colon (K63.5) Active confirmed Vital Signs Blood pressure diastolic 90 mm Hg 12/30/2023 sidney ght is up 5 pounds since 06-24-23 Height 67 in 12/30/2023 weight is up 5 pounds since 06-24-23 Blood pressure systolic 152 mm Hg 12/30/2023 weig ht is up 5 pounds since 06-24-23 Weight 243 lbs 12/30/2023 weight is up 5 pounds since 06-24-23 BMI 38.06 kg/m2 12/30/2023 weight is up 5 pounds since 06-24-23 Encounters Encounter Location Date Provider Diagnosis Garrett Ferreira MD [address] [place] [address] [address] [place], [place] [phone] 12/25/2024 Garrett Ferreira Blood tests for routine general physical examination Z00.00 ; Essential hypertension I10 ; History of lymphocytosis Z86.2 and Prediabetes R73.09 Garrett Ferreira MD [address] [place], [place] [phone] 12/30/2023 Garrett Ferreira Panlobular emphysema J43.1 ; Essential hypertension I10 ; Smoker unmotivated to quit F17.200 ; Annual physical exam Z00.00 and Prediabetes R73.09 Assessments Encounter Date Diagnosis (ICD Code) Assessment Notes Treatment Notes Treatment Clinical Notes Section Notes 12/25/2024 Blood tests for routine general physical examination (ICD-10 - Z00.00) 12/30/2023 Panlobular emphysema (ICD-10 - J43.1) get lung cancer screening results/ request faxed to him@ [email or web address] 12/30/2023 Essential hypertension (ICD-10 - I10) doing well 12/25/2024 Essential hypertension (ICD-10 - I10) 12/30/2023 Smoker unmotivated to quit (ICD-10 - F17.200) not going to quit 12/25/2024 History of lymphocytosis (ICD-10 - Z86.2) 12/30/2023 Annual physical exam (ICD-10 - Z00.00) Labs reviewed and discussed with patient 12/25/2024 Prediabetes (ICD-10 - R73.09) 12/30/2023 Prediabetes (ICD-10 - R73.09) Plan Of Treatment Pending Test Test Name Order Date Electrocardiogram (EKG) 10/04/2015 Complete Blood Count Auto Diff 5 Comprehensive [place]. Panel Fast 5 Lipid Panel 12/25/2024 PSA,Total (Free>4and<10) 12/25/2024 Microalbumin, Random 12/25/2024 Hemoglobin A1c 12/25/2024 UA ClnCatch+Micro w/rflx Cult 12/25/2024 Next Appt Details Provider Name:Garrett hooper, 12/31/2024 03:15:00 PM, [address], [address], [place], [place], [phone], Insurance Providers Payer Name Payer Address Payer Phone Subscriber Number Group Number Insured Name Patient Relationship to Insured Coverage Start Date Coverage End Date [facility] [address] [facility] [address] [place], [place] [id number] [place], [place] [phone] [id number] Tima Isabel Self - patient is the insured Medical (General) History Medical History History ICD Code colonoscopy2008 W/ Dr Coffman y due in 2019. Had colonoscopy 03/24/19 Dr Matute repeat in 10 years
[2024-12-25 10:33] LABS: Hemoglobin A1C 125.4979 umol/L; Total Hemoglobin (HGBA1C) 3815.7326 umol/L
[2024-12-25 10:38] LABS: Alanine Aminotransferase 24 U/L (0-40); Albumin Level 4.4 g/dL (3.5-5.0); Alkaline Phosphatase 57 U/L (39-117); Anion Gap 13 (12-20); Aspartate Amino Transferase 23 U/L (5-37); Blood Urea Nitrogen 23 mg/dL (9-16); Calcium 8.9 mg/dL (8.4-10.2); Carbon Dioxide 23 mmol/L (22-29); Chloride 109 mmol/L (96-108); Cholesterol 198 mg/dL (<200); Estimated Glomerular Filt Rate > 60; HDL Cholesterol 56 mg/dL (>40); Potassium 3.9 mmol/L (3.3-5.1); Sodium 141 mmol/L (135-145); Total Protein 7.3 g/dL (6.5-8.0); Triglycerides 83 mg/dL (<150)
[2024-12-25 10:52] LABS: Appearance Urine Clear; Glucose Urine UA Negative (Negative); PH 6.5 (5.0-9.0); Specific Gravity - Urine 1.025 (1.005-1.025)
[2024-12-25 10:58] LABS: PSA,Total (Free>4and<10) 0.86 ng/mL (0.00-4.00)
[2024-12-25 11:18] LABS: Microalbum/Creatinine Ratio Ur 5.4 ug/mg cr (<30)
== END 2024-12-25 10:06 | disposition home or self-care (01) ==
LOC: HO.LNP 10:05
PROVIDERS: Visit Provider Internal Medicine
DX: Z00.00 Encounter for general adult medical examination without abnormal findings (principal); I10 Essential (primary) hypertension; R73.09 Other abnormal glucose; Z86.2 Personal history of diseases of the blood and blood-forming organs and certain disorders involving the immune mechanism
CPT/HCPCS: 80053; 80061; 81001; 82043; 82570; 83036; 84153; 85025

== ENCOUNTER 2025-03-08 16:09 | Outpatient (REF) | payer OTHER, SELFPAY ==
--- OUTSIDE RECORDS SUMMARY | 2023-12-19 03:00 | XMS_ITS ---
Author Organization Garrett Ferreira MD Address [address] [place], [place] [id number] Care Team Providers Care Outside Operator Name Role Phone Garrett Ferreira Primary Care Provider [phone] Results Component Value Reference Range Notes Complete Blood Count Auto Di ff Reviewed date:12/19/2023 12:58:46 PM Interpretation: Performing Lab:[facility], [address] [place] [phone] Notes/Report: White Blood Count 6.1 4.8-10.8 X10*3/uL Red Blood Count 4.67 4.60-5.80 X10*6/uL Hemoglobin 15.2 14.0-18.0 g/dl Hematocrit 44.2 42.0-52.0 % Mean Corpuscular Volume 94.6 80.0-98.0 fL Mean Corpuscular Hemoglobin 32.5 27.0-33.0 pg Mean Corpuscular HGB Conc 34.4 31.0-36.0 g/dl Red Cell Distribution Width 12.6 11.0-16.0 % Platelet Count 220 160-400 X10*3/uL Mean Platelet Volume 10.1 9.4-12.4 fL Neutrophils Percent Auto 59.3 45-73 % Imm Gran Pct Auto 0.7 0.0-0.4 % Lymphocytes Percent Auto 26.1 20-40 % Monocytes Percent Auto 9.2 2-11 % Eosinophils Percent Auto 3.9 0-4 % Basophils Percent Auto 0.8 0-2 % NRBC Pct Auto 0.0 0.0-0.2 /100WBC Neutrophils Absolute Auto 3.6 2.0-8.3 x10*3/u L Imm Gran Abs Auto 0.04 0.00-0.03 X10*3/uL Lymphocytes Absolute Auto 1.6 1.2-4.9 X10*3/u L Monocytes Absolute Auto 0.6 0.1-1.2 X10*3/uL Eosinophils Absolute Auto 0.2 0.0-0.4 X10*3/u L Basophils Absolute Auto 0.1 0.0-0.2 X10*3/uL NRBC Abs Auto 0.000 0.0-0.012 X10*3/uL Comprehensive [place]. Panel Fa st Reviewed date:12/19/2023 04:38:48 PM Interpretation: Performing Lab:[address] [phone] Notes/Report: Sodium 140 135-145 mmol/L Potassium 3.9 3.3-5.1 mmol/L Chloride 106 96-108 mmol/L Carbon Dioxide 23 22-29 mmol/L Anion Gap 15 12-20 Blood Urea Nitrogen 17 9-16 mg/dL Creatinine 0.91 0.5-1.4 mg/dL Estimated Glomerular Filt Rate > 60 NOTE: For -Israeli individuals, multiply the result by 1.210. Chronic Kidney Disease: Estimated GFR < 60 mL/min/1.73m2 Severe Kidney Disease: Estimated GFR < 15 mL/min/1.73m2 Glucose Fasting 94 60-99 mg/dL Calcium 9.6 8.4-10.2 mg/dL Bilirubin Total 0.9 0.0-1.0 mg/dL Aspartate Amino Transferase 21 5-37 U/L Alanine Aminotransferase 22 0-40 U/L Total Protein 7.5 6.5-8.0 g/dL Albumin Level 4.3 3.5-5.0 g/dL Alkaline Phosphatase 57 39-117 U/L Lipid Panel Reviewed date:12/19/2023 11:56:23 AM Interpretation: Performing Lab:[address] [phone] Notes/Report: Triglycerides 114 <150 mg/dL Desirable Triglyceride: less than 150 mg/dL Borderline High Triglyceride 150-199 mg/dL High Triglyceride: 200-499 mg/dL Very High Triglyceride: greater than or equal to 5OO mg/dL Cholesterol 185 <200 mg/dL Desirable Cholesterol: less than 200 mg/dL Borderline High Cholesterol: 200-239 mg/dL High Cholesterol: greater than 239 mg/dL LDL Cholesterol Calculated 114 <100 mg/dL Desirable LDL: less than 100 mg/dL Near Optimal/Above Optimal LDL: 110-129 mg/dL Borderline High LDL: 130-159 mg/dL High LDL: 160-189 mg/dL Very High LDL: greater than or equal to 190 mg/dL HDL Cholesterol 49 >40 mg/dL Desirable HDL: greater than 40 mg/dL Note: This HDL assay may give artificially low results in patients with liver disease. PSA,Total (Free>4and<10) Reviewed date:12/19/2023 11:56:31 AM Interpretation: Performing Lab:[address] [phone] Notes/Report: PSA,Total (Free>4and<10) 0.60 0.00-4.00 ng/mL A Free PSA was not performed: The percentage of Free PSA can be used to enhance the differentiation of prostate cancer from benign prostatic disease in subjects whose PSA levels are between 4.0 and 10.0 ng/mL. For subjects whose PSA levels are below 4.0 or above 10.0 ng/mL, the risk of prostate cancer is determined on the basis of the PSA alone. Therefore the % Free PSA is recommended only for those subjects whose PSA levels are between 4.0 and 10.0 ng/mL. PSA methodology: Ham Alinity i Chemiluminescent Microparticle Immunoassay (CMIA) Microalbumin, Random Reviewed date:12/19/2023 11:54:54 AM Interpretation: Performing Lab:[address] [phone] Notes/Report: Creatinine Urine 83.50 Microalbumin Urine < 5.0 Microalbum/Creatinine Ratio Ur TNP <30 ug/mg cr Unable to calculate albumin/creatinine ratio due to low microalbumin or creatinine result. Hemoglobin A1c Reviewed date:12/19/2023 11:55:09 AM Interpretation: Performing Lab:[facility], [address] [place] [phone] Notes/Report: Hemoglobin A1c % 4.9 <6.0 % Hemoglobin A1C Reference Range Adults: 4.8 - 6.0 % Non diabetic: < 6.0 % Goal: < 7.0 % Additional Action Suggested: > 8.0 % Note: Hemoglobin A1c results are invalid for patients with abnormal amounts of HbF. Blood transfusions may impact the HbA1c concentration in the patient sample. Estimated Average Glucose 94 eAG = Estimated average glucose which is %A1C expressed as average glucose, using the formula of the [id number] Average Glucose study (ADAG), Diabetes Care, Vol.31,#8, Jan. 2007 UA ClnCatch+Micro w/rflx Cul t Reviewed date:12/19/2023 04:38:11 PM Interpretation: Performing Lab:[facility], [address] [place] [phone] Notes/Report: Urine, Clean Catch Color Urine Yellow Appearance Urine Clear PH 7.5 5.0-9.0 Glucose Urine UA Negative Negative mg/dL Urine Blood Negative Negative Specific [place] - Urine 1.020 1.005-1.025 Urine Protein Negative Neg-Trace mg/dL Urine Ketones Negative Negative mg/dL Nitrite Urine Negative Negative Leukocyte Esterase Urine Negative Negative RBC Urine 0-2 0-2 /HPF WBC Urine 0-5 0-5 /HPF Squamous Epithelial Cell Urine 0-2 0-2 /HPF Bacteria Urine None Seen None Seen Hyaline Casts Urine 0-2 0-2 /LPF REASON FOR VISIT FASTING LABS Encounters Encounter Location Date Provider Diagnosis Garrett Ferreira MD [address] [place] [address] [address] [place], [place] [phone] 12/19/2023 Garrett Ferreira Blood tests for routine general physical examination Z00.00 ; Essential hypertension I10 ; History of lymphocytosis Z86.2 and Prediabetes R73.09 Assessments Encounter Date Diagnosis (ICD Code) Assessment Notes Treatment Notes Treatment Clinical Notes Section Notes 12/19/2023 Blood tests for routine general physical examination (ICD-10 - Z00.00) 12/19/2023 Essential hypertension (ICD-10 - I10) 12/19/2023 History of lymphocytosis (ICD-10 - Z86.2) 12/19/2023 Prediabetes (ICD-10 - R73.09) Plan Of Treatment Next Appt Details Provider Name:Garrett Bowen ier, 03/29/2025 03:15:00 PM, [address], [address], [place], [phone], Provider Name:Garrett Bowen ier, 12/27/2025 07:00:00 AM, [address], [address], [place], [id number], Provider Name:Garrett Bowen ier, 01/03/2026 03:30:00 PM, [address], [address], [place], [id number], Progress Notes * Tima ISABEL LDOB: [birth year] (64 yo M)Acc No.[id number]:12/19/2023 Progress Note Patient: Tima HYATT Provider: Todd Ferreira MD :1960 A ge:63 Y S ex:Male Date:12/19/2023 Address:[address] [place] [id number] Subjective: * Chief Complaints: * 1 . FASTING LABS. * Medical History: Objective: * Vitals: Assessment: * Assessment: 1. B lood tests for routine general physical examination - Z00.00 (Primary) 2 .?Essential hypertension - I10 3 . H istory of lymphocytosis - Z86.2 ? 4 . P rediabetes - R73.09 Plan: * Treatment: 2. E ssential hypertension L AB: Complete Blood Count Auto Diff (Collection Date & Time - 12/19/2023 07:00 AM) L AB: Comprehensive [place]. Panel Fast (Collection Date & Time - 12/19/2023 07:00 AM) L AB: Lipid Panel (Collection Date & Time - 12/19/2023 07:00 AM) L AB: PSA,Total (Free>4and<10) (Collection Date & Time - 12/19/2023 07:00 AM) L AB: Microalbumin, Random (Collection Date & Time - 12/19/2023 07:00 AM) L AB: Hemoglobin A1c (Collection Date & Time - 12/19/2023 07:00 AM) L AB: UA ClnCatch+Micro w/rflx Cult (Collection Date & Time - 12/19/2023 07:00 AM) 3. H istory of lymphocytosis L AB: Complete Blood Count Auto Diff (Collection Date & Time - 12/19/2023 07:00 AM) L AB: Comprehensive [place]. Panel Fast (Collection Date & Time - 12/19/2023 07:00 AM) L AB: Lipid Panel (Collection Date & Time - 12/19/2023 07:00 AM) L AB: PSA,Total (Free>4and<10) (Collection Date & Time - 12/19/2023 07:00 AM) L AB: Microalbumin, Random (Collection Date & Time - 12/19/2023 07:00 AM) L AB: Hemoglobin A1c (Collection Date & Time - 12/19/2023 07:00 AM) L AB: UA ClnCatch+Micro w/rflx Cult (Collection Date & Time - 12/19/2023 07:00 AM) 4. P rediabetes L AB: Complete Blood Count Auto Diff (Collection Date & Time - 12/19/2023 07:00 AM) L AB: Comprehensive [place]. Panel Fast (Collection Date & Time - 12/19/2023 07:00 AM) L AB: Lipid Panel (Collection Date & Time - 12/19/2023 07:00 AM) L AB: PSA,Total (Free>4and<10) (Collection Date & Time - 12/19/2023 07:00 AM) L AB: Microalbumin, Random (Collection Date & Time - 12/19/2023 07:00 AM) L AB: Hemoglobin A1c (Collection Date & Time - 12/19/2023 07:00 AM) L AB: UA ClnCatch+Micro w/rflx Cult (Collection Date & Time - 12/19/2023 07:00 AM) * Procedure Codes: 3 6415 VENIPUNCT, ROUTINE* * * The named appointment provid er may or may not be the originator of this progress note, and it is not deemed complete until electronically signed by the appointment provider. Sign off status: Pending * Provider: Todd Ferreira MD Date: 0 12/19/2023 Generated for Yuni harman/Claudia/Sharonitting on: 1 06:24 PM EDT
--- OUTSIDE RECORDS SUMMARY | 2023-12-30 12:00 | XMS_ITS ---
Author Organization Garrett Ferreira MD Address [address] [place], [place] [id number] Care Team Providers Care Ship Surveyor Name Role Phone Garrett Ferreira Primary Care Provider [phone] Allergies Allergen (clinical drug ingredient) Drug/Non Drug Allergy documented on EMR Reaction Allergy Type Onset Date Status lisinopril Lisinopril cough Drug Allergy Activ e irbesartan Irbesartan cough Drug Allergy Activ e REASON FOR VISIT ANNUAL EXAM Medications Medication SIG (Take, Route, Frequency, Duration) Notes Start Date End Date Status Ventolin HFA 108 (90 Base) MCG/ACT TAKE 1 TO 2 PUFFS EVERY 4 TO 6 HOURS NEEDEED FOR BREATHING for 17 Not-Taking Nasacort Allergy 24HR 55 MCG/ACT 2 sprays in each nostril Nasally Once a day Not-Taking Albuterol Sulfate HFA 108 (9 0 Base) MCG/ACT 2 puffs as needed Inhalation every 6 hrs Not-Taking Ventolin HFA * 108 (90 Base) MCG/ACT 2 puffs as needed Inhalation every 4 hrs for 17 Not-Taking Albuterol Sulfate (2.5 MG/3ML) 0.083% 3 ml as needed Inhalation every 6 hrs Not-Taking Anoro Ellipta 62.5-25 MCG/ACT INHALE 1 P UFF INTO THE LUNGS EVERY DAY for 90 Active Valsartan 320 MG TAKE 1 TABLET BY MOUTH EVERY DAY for 90 Active Gabapentin 300 MG TAKE 1 CAPSULE BY MOUTH TWICE A DAY ORALLY TWICE A DAY 90 DAYS for 90 Active Celecoxib 200 MG TAKE 1 CAPSULE BY MOUTH EVERY DAY WITH FOOD for 30 Active Pantoprazole Sodium 40 MG 1 tablet Orall y Once a day for 30 day(s) Not-Taking ProAir HFA 108 (90 Base) MCG/ACT 1 puff as needed Inhalation every 4 hrs 12/08/2020 Active Latanoprost 0.005 % 1 drop into affected eye in the evening Ophthalmic Once a day Active hydroCHLOROthiazide 25 MG TAKE 1 TABLET BY MOUTH EVERY DAY IN THE MORNING for 90 Active Social History Tobacco Use: Social History Observation Description Date Details (start date - stop date) Current Smoker NA - NA Tobacco Use/Smoking Question Answer Notes Patient is a current smoker How often do you smoke cigarettes? every day How many cigarettes a day do you smoke? 31 or mo re How soon after you wake up d o you smoke your first cigarette? within 5 minutes Are you interested in quitting? Not ready to adam t Additional Findings: Tobacco User Ramila t cigarette smoker, not currently using another form of tobacco Alcohol Screen Question Answer Notes Did you have a drink contain ing alcohol in the past year? Yes How often did you have a dri nk containing alcohol in the past year? 4 or more times a week (4 points) How many drinks did you have on a typical day when you were drinking in the past year? 3 or 4 drinks (1 point) How often did you have 6 or more drinks on one occasion in the past year? Never (0 point) Points 5 Interpretation Positive Vital Signs Blood pressure systolic 152 mm Hg 12/30/19 24 Blood pressure diastolic 90 mm Hg 024 Height 67 in 12/30/2023 Weight 243 lbs 12/30/2023 BMI 38.06 kg/m2 12/30/2023 weight is up 5 pounds since 06-24-23 Encounters Encounter Location Date Provider Diagnosis Garrett Ferreira MD [address] [place] [address] [address] [place], [place] [phone] 12/30/2023 Garrett Ferreira Panlobular emphysema J43.1 ; Essential hypertension I10 ; Smoker unmotivated to quit F17.200 ; Annual physical exam Z00.00 and Prediabetes R73.09 Assessments Encounter Date Diagnosis (ICD Code) Assessment Notes Treatment Notes Treatment Clinical Notes Section Notes 12/30/2023 Panlobular emphysema (ICD-10 - J43.1) get lung cancer screening results/ request faxed to [email or web address] 12/30/2023 Essential hypertension (ICD-10 - I10) doing well 12/30/2023 Smoker unmotivated to quit (ICD-10 - F17.200) not going to quit 12/30/2023 Annual physical exam (ICD-10 - Z00.00) Labs reviewed and discussed with patient 12/30/2023 Prediabetes (ICD-10 - R73.09) Plan Of Treatment Treatment Notes Assessment Notes Panlobular emphysema get lung cancer scr eening results/ request faxed to [email or web address] Essential hypertension doing well Smoker unmotivated to quit not going to quit Annual physical exam Labs reviewed and d iscussed with patient Next Appt Details Follow Up: 1 Year, Reason: Provider Name:Garrett hooper, 03/29/2025 03:15:00 PM, [address] [place] [address], [address], [phone], Provider Name:Garrett hooper, 12/27/2025 07:00:00 AM, [address] [place] [address], [place] [address], [place], [place], [phone], Provider Name:Garrett hooper, 01/03/2026 03:30:00 PM, [address] [place] [address], [address], [phone], Progress Notes * Tima ISABEL LDOB: [birth year] (63 yo M)Acc No.[id number]:12/30/2023 Progress Notes Patient: Tima Francisco Sergio Provider: Todd Ferreria MD :1960 A ge:63 Y S ex:Male Date:12/30/2023 Address:[address] [place], [place] [id number] Subjective: * Chief Complaints: * A NNUAL EXAM * HPI: D epression Screening: PHQ-9 L ittle interest or pleasure in doing things N ot at all, F eeling down, depressed, or hopeless N ot at all, T rouble falling or staying asleep, or sleeping too much N ot at all, F eeling tired or having little energy N ot at all, P oor appetite or overeating N ot at all, F eeling bad about yourself or that you are a failure, or have let yourself or your family down N ot at all, T rouble concentrating on things, such as reading the newspaper or watching television N ot at all, M oving or speaking so slowly that other people could have noticed; or the opposite, being so fidgety or restless that you have been moving around a lot more than usual N ot at all, T houghts that you would be better off or of hurting yourself in some way N ot at all, T otal Score 0 . I nterpretation and Intervention D epression Screening Findings N egative, F ollow-Up for Depression : review of PHQ-9 found negative result, no follow-up needed. patient is a 63 yo male here for yearly evaluation with review of recent labs and follow up of chronic issues. feeling well. C ommunication Needs: Communication Needs D oes the patient have a hearing impairment N o, D oes the patient have a vision impairment? Y es, I f yes, what is the vision impairment? G lasses, D oes the patient have a cognition impairment? N o. S KAROL Questions: SDOH Questions I n the past year have you been worried about losing housing? N o, I n the past year have you or any family members you live with been unable to get any of the following when it was really needed? Check all that apply: N one. * ROS: G eneral/Constitutional: Change in appetite d enies. C hills d enies. F ever d enies. O phthalmologic: Blurred vision d enies. D ischarge d enies. P ain d enies. E NT: Decreased hearing d enies. S ore throat d enies.?Swollen glands d enies. E ndocrine: Cold intolerance d enies. E xcessive thirst d enies. H eat intolerance d enies. W eight loss d enies. R espiratory: Cough d enies. S hortness of breath at rest d enies. S hortness of breath with exertion d enies. W heezing d enies. C ardiovascular: Chest pain at rest d enies. C hest pain with exertion?denies. I rregular heartbeat d enies. S hortness of breath d enies. ? G astrointestinal: Abdominal pain d enies. C hange in bowel habits d enies. D iarrhea d enies. N ausea d enies. R ectal bleeding d enies. V omiting d enies . G enitourinary: Blood in urine d enies. D ifficulty urinating d enies. F requent urination d enies. M usculoskeletal: Painful joints d enies. W eakness d enies. ? S kin: Dry skin d enies. I tching d enies. D enies?Mole(s), changes in moles, new moles or any lesions of concern. D enies P hotosensitivity. R brtitany d enies. N eurologic: Dizziness d enies. F ainting d enies. H eadache?denies. * Medical History: * Surgical History: * Hospitalization/Major Diagno stic Procedure: * Family History: F ather: 56 yrs. M other: alive 84 yrs. 2 brother(s) - healthy. . father,lung cancer, Denies mental health/substance abuse family history, Denies mental health/substance abuse family history, Denies mental health/substance abuse family history, Denies mental health/substance abuse family history, Denies mental health/substance abuse family history. * Social History: T obacco Use: T obacco Use/Smoking P atient is a c urrent smoker, H ow often do you smoke cigarettes? e very day, H ow many cigarettes a day do you smoke? 3 1 or more, H ow soon after you wake up do you smoke your first cigarette? w ithin 5 minutes, A re you interested in quitting? N ot ready to quit, A dditional Findings: Tobacco User C urrent cigarette smoker, not currently using another form of tobacco. D rugs/Alcohol: A lcohol Screen D id you have a drink containing alcohol in the past year? Y es, H ow often did you have a drink containing alcohol in the past year? 4 or more times a week (4 points), H ow many drinks did you have on a typical day when you were drinking in the past year? 3 or 4 drinks (1 point), H ow often did you have 6 or more drinks on one occasion in the past year? N ever (0 point), P oints 5 , I nterpretation P ositive. M iscellaneous: C affeine: yes, frequency:, 3-4 cups per day. no Children. no Community involvements. no Exercise. Home smoke detector use: yes. Housing: owning. Living with: family. Marital status: single. Occupation: works full-time. Pets: none. no Travel outside of the [place]. * Medications: T akingLatanoprost 0.005 % Solution 1 drop into affected eye in the evening Ophthalmic Once a dayProAir HFA 108 (90 Base) MCG/ACT Aerosol Solution 1 puff as needed Inhalation every 4 hrshydroCHLOROthiazide 25 MG Tablet TAKE 1 TABLET BY MOUTH EVERY DAY IN THE MORNING Valsartan 320 MG Tablet TAKE 1 TABLET BY MOUTH EVERY DAY Anoro Ellipta 62.5-25 MCG/ACT Aerosol Powder Breath Activated INHALE 1 PUFF INTO THE LUNGS EVERY DAY Celecoxib 200 MG Capsule TAKE 1 CAPSULE BY MOUTH EVERY DAY WITH FOOD Gabapentin 300 MG Capsule TAKE 1 CAPSULE BY MOUTH TWICE A DAY ORALLY TWICE A DAY 90 DAYS Taking Latanoprost 0.005 % Solution 1 drop into affected eye in the evening Ophthalmic Once a dayTaking ProAir HFA 108 (90 Base) MCG/ACT Aerosol Solution 1 puff as needed Inhalation every 4 hrsTaking hydroCHLOROthiazide 25 MG Tablet TAKE 1 TABLET BY MOUTH EVERY DAY IN THE MORNING Taking Valsartan 320 MG Tablet TAKE 1 TABLET BY MOUTH EVERY DAY Taking Anoro Ellipta 62.5-25 MCG/ACT Aerosol Powder Breath Activated INHALE 1 PUFF INTO THE LUNGS EVERY DAY Taking Celecoxib 200 MG Capsule TAKE 1 CAPSULE BY MOUTH EVERY DAY WITH FOOD Taking Gabapentin 300 MG Capsule TAKE 1 CAPSULE BY MOUTH TWICE A DAY ORALLY TWICE A DAY 90 DAYS Not-Taking/PRNPantoprazole Sodium 40 MG Tablet Delayed Release 1 tablet Orally Once a dayVentolin HFA 108 (90 Base) MCG/ACT Aerosol Solution TAKE 1 TO 2 PUFFS EVERY 4 TO 6 HOURS NEEDEED FOR BREATHING Albuterol Sulfate HFA 108 (90 Base) MCG/ACT Aerosol Solution 2 puffs as needed Inhalation every 6 hrsNasacort Allergy 24HR 55 MCG/ACT Aerosol 2 sprays in each nostril Nasally Once a dayAlbuterol Sulfate (2.5 MG/3ML) 0.083% Nebulization Solution 3 ml as needed Inhalation every 6 hrsVentolin HFA * 108 (90 Base) MCG/ACT Aerosol Solution 2 puffs as needed Inhalation every 4 hrsMedication List reviewed and reconciled with the patientNot-Taking/PRN Pantoprazole Sodium 40 MG Tablet Delayed Release 1 tablet Orally Once a dayNot-Taking/PRN Ventolin HFA 108 (90 Base) MCG/ACT Aerosol Solution TAKE 1 TO 2 PUFFS EVERY 4 TO 6 HOURS NEEDEED FOR BREATHING Not-Taking/PRN Albuterol Sulfate HFA 108 (90 Base) MCG/ACT Aerosol Solution 2 puffs as needed Inhalation every 6 hrsNot-Taking/PRN Nasacort Allergy 24HR 55 MCG/ACT Aerosol 2 sprays in each nostril Nasally Once a dayNot-Taking/PRN Albuterol Sulfate (2.5 MG/3ML) 0.083% Nebulization Solution 3 ml as needed Inhalation every 6 hrsNot-Taking/PRN Ventolin HFA * 108 (90 Base) MCG/ACT Aerosol Solution 2 puffs as needed Inhalation every 4 hrsMedication List reviewed and reconciled with the patient * Allergies: L isinopril: coughIrbesartan: coughyes[Allergies Verified] Objective: * Vitals: H t: 67, Wt:243, BMI:38.06, BP:152/90, Repeat BP:126/78 weight is up 5 pounds since 06-24-23. * P ast Orders: L ab:PSA,Total (Free>4and<10) (Order Date - 12/19/2023) (Collection Date - 12/19/2023) Value Reference Range PSA,Total (Free>4and<10) 0.60 0.00-4.00 - ng/ mL L ab:Microalbumin, Random (Order Date - 12/19/2023) (Collection Date - 12/19/2023) Value Reference Range Creatinine Urine 83.50 - mg/dL Microalbumin Urine < 5.0 - mg/L Microalbum Creatinine Ratio Ur TNP <30 - ug/ mg cr L ab:Hemoglobin A1c (Order Date - 12/19/2023) (Collection Date - 12/19/2023) Value Reference Range Hemoglobin A1c % 4.9 <6.0 - % Estimated Average Glucose 94 - mg/dL L ab:Complete Blood Count Auto Diff (Order Date - 12/19/2023) (Collection Date - 12/19/2023) Value Reference Range White Blood Count 6.1 4.8-10.8 - X10*3/uL Red Blood Count 4.67 4.60-5.80 - X10*6/uL Hemoglobin 15.2 14.0-18.0 - g/dl Hematocrit 44.2 42.0-52.0 - % Mean Corpuscular Volume 94.6 80.0-98.0 - fL Mean Corpuscular Hemoglobin 32.5 27.0-33.0 - pg Mean Corpuscular HGB Conc 34.4 31.0-36.0 - g/ dl Red Cell Distribution Width 12.6 11.0-16.0 - % Platelet Count 220 160-400 - X10*3/uL Mean Platelet Volume 10.1 9.4-12.4 - fL Neutrophils Percent Auto 59.3 45-73 - % Imm Gran Pct Auto 0.7 H 0.0-0.4 - % Lymphocytes Percent Auto 26.1 20-40 - % Monocytes Percent Auto 9.2 2-11 - % Eosinophils Percent Auto 3.9 0-4 - % Basophils Percent Auto 0.8 0-2 - % NRBC Pct Auto 0.0 0.0-0.2 - /100WBC Neutrophils Absolute Auto 3.6 2.0-8.3 - x10* 3/uL Imm Gran Abs Auto 0.04 H 0.00-0.03 - X10*3/uL Lymphocytes Absolute Auto 1.6 1.2-4.9 - X10* 3/uL Monocytes Absolute Auto 0.6 0.1-1.2 - X10*3/ uL Eosinophils Absolute Auto 0.2 0.0-0.4 - X10* 3/uL Basophils Absolute Auto 0.1 0.0-0.2 - X10*3/ uL NRBC Abs Auto 0.000 0.0-0.012 - X10*3/uL L ab:UA ClnCatch+Micro w/rflx Cult (Order Date - 12/19/2023) (Collection Date - 12/19/2023) Value Reference Range Color Urine Yellow - Appearance Urine Clear - PH 7.5 5.0-9.0 - Glucose Urine UA Negative Negative - mg/dL Urine Blood Negative Negative - Specific [place] - Urine 1.020 1.005-1.025 - Urine Protein Negative Neg-Trace - mg/dL Urine Ketones Negative Negative - mg/dL Nitrite Urine Negative Negative - Leukocyte Esterase Urine Negative Negative - RBC Urine 0-2 0-2 - /HPF WBC Urine 0-5 0-5 - /HPF Squamous Epithelial Cell Urine 0-2 0-2 - /HP F Bacteria Urine None Seen None Seen - Hyaline Casts Urine 0-2 0-2 - /LPF L ab:Comprehensive [place]. Panel Fast (Order Date - 12/19/2023) (Collection Date - 12/19/2023) Value Reference Range Sodium 140 135-145 - mmol/L Bilirubin Total 0.9 0.0-1.0 - mg/dL Aspartate Amino Transferase 21 5-37 - U/L Alanine Aminotransferase 22 0-40 - U/L Total Protein 7.5 6.5-8.0 - g/dL Albumin Level 4.3 3.5-5.0 - g/dL Alkaline Phosphatase 57 39-117 - U/L Potassium 3.9 3.3-5.1 - mmol/L Chloride 106 96-108 - mmol/L Carbon Dioxide 23 22-29 - mmol/L Anion Gap 15 12-20 - Blood Urea Nitrogen 17 H 9-16 - mg/dL Creatinine 0.91 0.5-1.4 - mg/dL Estimated Glomerular Filt Rate > 60 - Glucose Fasting 94 60-99 - mg/dL Calcium 9.6 8.4-10.2 - mg/dL L ab:Lipid Panel (Order Date - 12/19/2023) (Collection Date - 12/19/2023) Value Reference Range Triglycerides 114 <150 - mg/dL Cholesterol 185 <200 - mg/dL LDL Cholesterol Calculated 114 H <100 - mg/dL HDL Cholesterol 49 >40 - mg/dL * Examination: G eneral Examination: GENERAL APPEARANCE: w ell developed, well nourished, in no acute distress. HEAD: n ormocephalic, atraumatic. EYES: p upils equal, round, reactive to light and accommodation, sclera non-icteric. EARS: n ormal. ORAL CAVITY: m [place] moist. THROAT: c lear. NECK/THYROID: n ted supple, full range of motion, no cervical lymphadenopathy, no bruits. SKIN: w arm and dry, no suspicious lesions. HEART: r egular rate and rhythm, S1, S2 normal, no murmurs.? LUNGS: c lear to auscultation bilaterally. ABDOMEN: s oft, nontender, nondistended, bowel sounds present, normal, no organomegaly , no masses palpable. RECTAL EXAM: n ormal tone, no external hemorrhoids, no masses palpable, prostate normal, stool guaiac negative. MALE GENITOURINARY: c ircumcised, no penile lesions or discharge, no testicular mass, prostate normal. EXTREMITIES: n o clubbing, cyanosis, or edema. NEUROLOGIC: n onfocal, motor strength normal upper and lower extremities, sensory exam intact. Assessment: * Assessment: 1. P anlobular emphysema - J43.1 (Primary) 2 . E ssential hypertension - I10 3 .?Smoker unmotivated to quit - F17.200 4 . A nnual physical exam - Z00.00 5 . P rediabetes - R73.09 Plan: * Treatment: 2. E ssential hypertension Notes: doing well. 3. S moker unmotivated to quit Notes: not going to quit. 4. A nnual physical exam Notes: Labs reviewed and discussed with patient. * Procedure Codes: * Preventive Medicine: Counseling: C are goal follow-up plan: Sabino welch for abnormal BMI provided?Yes, [place] Normal BMI Follow-up Sergio nath education regarding diet. COPD Care Plan: P atient Lifestyle Goals R elieve symptoms and improve quality of life. T reatment Goals Q uit smoking or cut down number of cigarettes slowly. B arriers P atient unmotivated to quit smoking. * Follow Up: 1 Year * * Sign off status: Completed true * Provider: Todd Ferreira MD Date: 12/30/2023 Generated for Yuni harman/Faxing/eTransmitting on: 1 06:25 PM EDT History and Physical Notes * HPI (History of Present Illness) Category Sub-Category Detail Notes Category Not es Depression Screening PHQ-9 Little inte rest or pleasure in doing things: Not at all patient is a 63 yo male here for yearly evaluation with review of recent labs and follow up of chronic issues. feeling well. Feeling down, depressed, or hopeless: No t at all Trouble falling or staying asleep, or sl eeping too much: Not at all Feeling tired or having little energy: N ot at all Poor appetite or overeating: Not at all Feeling bad about yourself o r that you are a failure, or have let yourself or your family down: Not at all Trouble concentrating on thi ngs, such as reading the newspaper or watching television: Not at all Moving or speaking so slowly that other people could have noticed; or the opposite, being so fidgety or restless that you have been moving around a lot more than usual: Not at all Thoughts that you would be b elver off or of hurting yourself in some way: Not at all Total Score: 0 Interpretation and Intervention Depression Jena landon Findings: Negative Follow-Up for Depression: : review of PH Q-9 found negative result, no follow-up needed SDOH Questions SDOH Questions In the past year have you been worried about losing housing?: No In the past year have you or any family members you live with been unable to get any of the following when it was really needed? Check all that apply:: None Communication Needs Communication Needs Does the patient have a hearing impairment: No Does the patient have a vision impairmen t?: Yes If yes, what is the vision impairment?: Glasses Does the patient have a cognition impair ment?: No Examination Category Sub-Category Detail Notes Category Not es General Examination GENERAL APPEARANCE: well dev eloped, well nourished, in no acute distress HEAD: normocephalic, atrau matic EYES: pupils equal, round, reactive to light and accommodation, sclera non-icteric EARS: normal THROAT: clear NECK/THYROID: neck supple, full ra nge of motion, no cervical lymphadenopathy, no bruits HEART: regular rate and rhy thm, S1, S2 normal, no murmurs LUNGS: clear to auscultatio n bilaterally ABDOMEN: soft, nontender, non distended, bowel sounds present, normal, no organomegaly , no masses palpable NEUROLOGIC: nonfocal, motor stre ngth normal upper and lower extremities, sensory exam intact SKIN: warm and dry, no esther picious lesions EXTREMITIES: no clubbing, cyanosi s, or edema MALE GENITOURINARY: circumcised, no peni le lesions or discharge, no testicular mass, prostate normal RECTAL EXAM: normal tone, no exte rnal hemorrhoids, no masses palpable, prostate normal, stool guaiac negative ORAL CAVITY: mucosa moist
--- OUTSIDE RECORDS SUMMARY | 2024-12-25 03:15 | XMS_ITS ---
Author Organization Garrett Ferreira MD Address [address] [place], [place] [id number] Care Team Providers Care Paraeducator Name Role Phone Garrett Ferreira Primary Care Provider Results Component Value Reference Range Notes Complete Blood Count Auto Di ff Reviewed date:12/26/2024 03:37:11 PM Interpretation: Performing Lab:[facility], [address] [place] [phone] Notes/Report: White Blood Count 5.7 4.8-10.8 X10*3/uL Red Blood Count 4.59 4.60-5.80 X10*6/uL Hemoglobin 14.9 14.0-18.0 g/dl Hematocrit 43.6 42.0-52.0 % Mean Corpuscular Volume 95.0 80.0-98.0 fL Mean Corpuscular Hemoglobin 32.5 27.0-33.0 pg Mean Corpuscular HGB Conc 34.2 31.0-36.0 g/dl Red Cell Distribution Width 12.6 11.0-16.0 % Platelet Count 226 160-400 X10*3/uL Mean Platelet Volume 10.1 9.4-12.4 fL Neutrophils Percent Auto 56.9 45-73 % Imm Gran Pct Auto 0.7 0.0-0.4 % Lymphocytes Percent Auto 27.2 20-40 % Monocytes Percent Auto 9.1 2-11 % Eosinophils Percent Auto 4.9 0-4 % Basophils Percent Auto 1.2 0-2 % NRBC Pct Auto 0.0 0.0-0.2 /100WBC Neutrophils Absolute Auto 3.2 2.0-8.3 x10*3/u L Imm Gran Abs Auto 0.04 0.00-0.03 X10*3/uL Lymphocytes Absolute Auto 1.6 1.2-4.9 X10*3/u L Monocytes Absolute Auto 0.5 0.1-1.2 X10*3/uL Eosinophils Absolute Auto 0.3 0.0-0.4 X10*3/u L Basophils Absolute Auto 0.1 0.0-0.2 X10*3/uL NRBC Abs Auto 0.000 0.0-0.012 X10*3/uL Comprehensive [place]. Panel Fa st Reviewed date:12/25/2024 09:30:17 PM Interpretation: Performing Lab:[facility], [address] [place] [phone] Notes/Report: Sodium 141 135-145 mmol/L Potassium 3.9 3.3-5.1 mmol/L Chloride 109 96-108 mmol/L Carbon Dioxide 23 22-29 mmol/L Anion Gap 13 12-20 Blood Urea Nitrogen 23 9-16 mg/dL Creatinine 0.89 0.5-1.4 mg/dL Estimated Glomerular Filt Rate > 60 Chronic Kidney Disease: Estimated GFR < 60 mL/min/1.73m2 Severe Kidney Disease: Estimated GFR < 15 mL/min/1.73m2 Glucose Fasting 105 60-99 mg/dL A fasting glucose from 100-125 mg/dl is considered impaired (pre-diabetes). Calcium 8.9 8.4-10.2 mg/dL Bilirubin Total 0.7 0.0-1.0 mg/dL Aspartate Amino Transferase 23 5-37 U/L Alanine Aminotransferase 24 0-40 U/L Total Protein 7.3 6.5-8.0 g/dL Albumin Level 4.4 3.5-5.0 g/dL Alkaline Phosphatase 57 39-117 U/L Lipid Panel Reviewed date:12/25/2024 09:15:55 PM Interpretation: Performing Lab:[facility], [address] [place] [phone] Notes/Report: Triglycerides 83 <150 mg/dL Desirable Triglyceride: less than 150 mg/dL Borderline High Triglyceride 150-199 mg/dL High Triglyceride: 200-499 mg/dL Very High Triglyceride: greater than or equal to 5OO mg/dL Cholesterol 198 <200 mg/dL Desirable Cholesterol: less than 200 mg/dL Borderline High Cholesterol: 200-239 mg/dL High Cholesterol: greater than 239 mg/dL LDL Cholesterol Calculated 126 <100 mg/dL Desirable LDL: less than 100 mg/dL Near Optimal/Above Optimal LDL: 110-129 mg/dL Borderline High LDL: 130-159 mg/dL High LDL: 160-189 mg/dL Very High LDL: greater than or equal to 190 mg/dL HDL Cholesterol 56 >40 mg/dL Desirable HDL: greater than 40 mg/dL Note: This HDL assay may give artificially low results in patients with liver disease. PSA,Total (Free>4and<10) Reviewed date:12/25/2024 09:15:21 PM Interpretation: Performing Lab:[address] [phone] Notes/Report: PSA,Total (Free>4and<10) 0.86 0.00-4.00 ng/mL A Free PSA was not [...] Chemiluminescent Microparticle Immunoassay (CMIA) Microalbumin, Random Reviewed date:12/25/2024 09:15:45 PM Interpretation: Performing Lab:[facility], [address] [place] [phone] Notes/Report: Creatinine Urine 203.02 Microalbumin Urine 11.0 Microalbum/Creatinine Ratio Ur 5.4 <30 ug/mg cr Albumin/Creatinine Ratio Reference Ranges: Normal: < 30 ug/mg creatinine Microalbuminuria: 30 - 300 ug/mg creatinine Clinical Albuminuria: > 300 ug/mg creatinine Hemoglobin A1c Reviewed date:12/25/2024 09:15:12 PM Interpretation: Performing Lab:[facility], [address] [place] [phone] Notes/Report: Hemoglobin A1c % 5.2 <6.0 % Hemoglobin A1C Reference Range Adults: 4.8 - 6.0 % Non diabetic: < 6.0 % Goal: < 7.0 % Additional Action Suggested: > 8.0 % Note: Hemoglobin A1c results are invalid for patients with abnormal amounts of HbF. Blood transfusions may impact the HbA1c concentration in the patient sample. Estimated Average Glucose 103 eAG = Estimated average glucose which is %A1C expressed as average glucose, using the formula of the [id number] Average Glucose study (ADAG), Diabetes Care, Vol.31,#8, Jan. 2007 UA ClnCatch+Micro w/rflx Cul t Reviewed date:12/27/2024 09:27:40 AM Interpretation: Performing Lab:[facility], [address] [place] [phone] Notes/Report: Urine, Clean Catch Color Urine Yellow Appearance Urine Clear PH 6.5 5.0-9.0 Glucose Urine UA Negative Negative mg/dL Urine Blood Negative Negative Specific [place] - Urine 1.025 1.005-1.025 Urine Protein Trace Neg-Trace mg/dL Urine Ketones Negative Negative mg/dL Nitrite Urine Negative Negative Leukocyte Esterase Urine Negative Negative RBC Urine 0-2 0-2 /HPF WBC Urine 0-5 0-5 /HPF Squamous Epithelial Cell Urine 0-2 0-2 /HPF Bacteria Urine None Seen None Seen Hyaline Casts Urine 0-2 0-2 /LPF REASON FOR VISIT FASTING LABS Encounters Encounter Location Date Provider Diagnosis Garrett Ferreira MD [address] [place], [place] [id number] 12/25/2024 Garrett Ferreira Blood tests for routine general physical examination Z00.00 ; Essential hypertension I10 ; History of lymphocytosis Z86.2 and Prediabetes R73.09 Assessments Encounter Date Diagnosis (ICD Code) Assessment Notes Treatment Notes Treatment Clinical Notes Section Notes 12/25/2024 Blood tests for routine general physical examination (ICD-10 - Z00.00) 12/25/2024 Essential hypertension (ICD-10 - I10) 12/25/2024 History of lymphocytosis (ICD-10 - Z86.2) 12/25/2024 Prediabetes (ICD-10 - R73.09) Plan Of Treatment Next Appt Details Provider Name:Garrett Bowen ier, 03/29/2025 03:15:00 PM, [address] [facility] [address], [address], [place], [place], [id number], Provider Name:Garrett Bowen ier, 12/27/2025 07:00:00 AM, [address], [address], [place], [place], [phone], Provider Name:Garrett Bowen ier, 01/03/2026 03:30:00 PM, [address] [facility] [address], [address] [facility], [place], [place], [phone], Progress Notes * Tima ISABEL LDOB: [birth year] (64 yo M)Acc No.[id number]:12/25/2024 Progress Note Patient: Tima HYATT Provider: Todd Ferreira MD :1960 A ge:64 Y S ex:Male Date:12/25/2024 Address:[address] [place], [place] [phone] Subjective: * Chief Complaints: * 1 . [...] Auto Diff (Collection Date & Time - 12/25/2024 07:15 AM) L AB: Comprehensive [place]. Panel Fast (Collection Date & Time - 12/25/2024 07:15 AM) L AB: Lipid Panel (Collection Date & Time - 12/25/2024 07:15 AM) L AB: PSA,Total (Free>4and<10) (Collection Date & Time - 12/25/2024 07:15 AM) L AB: Microalbumin, Random (Collection Date & Time - 12/25/2024 07:15 AM) L AB: Hemoglobin A1c (Collection Date & Time - 12/25/2024 07:15 AM) L AB: UA ClnCatch+Micro w/rflx Cult (Collection Date & Time - 12/25/2024 07:15 AM) 3. H istory of lymphocytosis L AB: Complete Blood Count Auto Diff (Collection Date & Time - 12/25/2024 07:15 AM) L AB: Comprehensive [place]. Panel Fast (Collection Date & Time - 12/25/2024 07:15 AM) L AB: Lipid Panel (Collection Date & Time - 12/25/2024 07:15 AM) L AB: PSA,Total (Free>4and<10) (Collection Date & Time - 12/25/2024 07:15 AM) L AB: Microalbumin, Random (Collection Date & Time - 12/25/2024 07:15 AM) L AB: Hemoglobin A1c (Collection Date & Time - 12/25/2024 07:15 AM) L AB: UA ClnCatch+Micro w/rflx Cult (Collection Date & Time - 12/25/2024 07:15 AM) 4. P rediabetes L AB: Complete Blood Count Auto Diff (Collection Date & Time - 12/25/2024 07:15 AM) L AB: Comprehensive [place]. Panel Fast (Collection Date & Time - 12/25/2024 07:15 AM) L AB: Lipid Panel (Collection Date & Time - 12/25/2024 07:15 AM) L AB: PSA,Total (Free>4and<10) (Collection Date & Time - 12/25/2024 07:15 AM) L AB: Microalbumin, Random (Collection Date & Time - 12/25/2024 07:15 AM) L AB: Hemoglobin A1c (Collection Date & Time - 12/25/2024 07:15 AM) L AB: UA ClnCatch+Micro w/rflx Cult (Collection Date & Time - 12/25/2024 07:15 AM) * Procedure Codes: 3 6415 VENIPUNCT, ROUTINE* * * The named appointment provid er may or may not be the originator of this progress note, and it is not deemed complete until electronically signed by the appointment provider. Sign off status: Pending * Provider: Todd Ferreira MD Date: 0 12/25/2024 Generated for Yuni harman/Claudia/Mukund on: 1 06:24 PM EDT
--- OUTSIDE RECORDS SUMMARY | 2024-12-31 11:15 | XMS_ITS ---
Author Organization Garrett Ferreira MD Address [address] [place], [place] [id number] Care Team Providers Care Human Relations Professor Name Role Phone Garrett Ferreira Primary Care Provider Allergies Allergen (clinical drug ingredient) Drug/Non Drug Allergy documented on EMR Reaction Allergy Type Onset Date Status lisinopril Lisinopril cough Drug Allergy Activ e irbesartan Irbesartan cough Drug Allergy Activ e REASON FOR VISIT ANNUAL EXAM Medications Medication SIG (Take, Route, Frequency, Duration) Notes Start Date End Date Status Pantoprazole Sodium 40 MG 1 tablet Orall y Once a day for 30 day(s) Not-Taking Albuterol Sulfate HFA 108 (90 Base) MCG/ACT 2 puffs as needed Inhalation every 6 hrs Not-Takin g Ventolin HFA 108 (90 Base) MCG/ACT TAKE 1 TO 2 PUFFS EVERY 4 TO 6 HOURS NEEDEED FOR BREATHING for 17 Not-Taking Nasacort Allergy 24HR 55 MCG/ACT 2 sprays in each nostril Nasally Once a day Not-Taking Albuterol Sulfate (2.5 MG/3ML) 0.083% 3 ml as needed Inhalation every 6 hrs Not-Takin g Celecoxib 200 MG TAKE 1 CAPSULE BY MO UT EVERY DAY WITH FOOD for 30 Active Anoro Ellipta 62.5-25 MCG/ACT INHALE 1 PUFF INTO THE LUNGS EVERY DAY for 30 Active Gabapentin 300 MG TAKE 1 CAPSULE BY MO [facility] TWICE A DAY ORALLY TWICE A DAY 90 DAYS for 90 Active Latanoprost 0.005 % 1 drop into affected eye in the evening Ophthalmic Once a day Active Valsartan-hydroCHLOROthia zide 320-25 MG 1 tablet Orally Once a day for 30 day(s) 12/31/2024 Active ProAir HFA 108 (90 Base) MCG/ACT 1 puff as needed Inhalation every 4 hrs for 30 days 12/08/2020 Active Ventolin HFA * 108 (90 Base) MCG/ACT 2 puffs as needed Inhalation every 4 hrs for 17 Not-Taking Social History Tobacco Use: Social History Observation [...] to adam t Additional Findings: Tobacco User Curren t cigarette smoker, not currently using another [...] Interpretation Positive Vital Signs Blood pressure systolic 144 mm Hg 01/01/20 25 Blood pressure diastolic 86 mm Hg 025 Height 67 in 12/31/2024 Weight 250 lbs 12/31/2024 BMI 39.15 kg/m2 12/31/2024 weight is up 7 pounds since 12-30-23 Encounters Encounter Location Date Provider Diagnosis Garrett Ferreira MD [address] [place] [address] [address] [place], [place] [phone] 12/31/2024 Garrett Ferreira Panlobular emphysema J43.1 ; Annual physical exam Z00.00 ; Essential hypertension I10 ; Smoker unmotivated to quit F17.200 ; Prediabetes R73.09 ; Colon cancer screening Z12.11 and Depression screening Z13.31 Assessments Encounter Date Diagnosis (ICD Code) Assessment Notes Treatment Notes Treatment Clinical Notes Section Notes 12/31/2024 Panlobular emphysema (ICD-10 - J43.1) 12/31/2024 Annual physical exam (ICD-10 - Z00.00) Labs reviewed and discussed with patient 12/31/2024 Essential hypertension (ICD-10 - I10) 12/31/2024 Smoker unmotivated to quit (ICD-10 - F17.200) no desire to quit 12/31/2024 Prediabetes (ICD-10 - R73.09) 12/31/2024 Colon cancer screening (ICD-10 - Z12.11) 12/31/2024 Depression screening (ICD-10 - Z13.31) Plan Of Treatment Medication Medication Name Sig Start Date Stop Date Notes Valsartan 320 MG TAKE 1 TABLET BY OMAR TH EVERY DAY Valsartan-hydroCHLOROthiazid e 320-25 MG 1 tablet Orally Once a day for 30 day(s) 12/31/2024 ProAir HFA 108 (90 Base) MCG/ACT 1 puff as needed Inhalation every 4 hrs for 30 days 12/08/2020 hydroCHLOROthiazide 25 MG TAKE 1 TABLET BY MOUTH EVERY DAY IN THE MORNING Treatment Notes Assessment Notes Smoker unmotivated to quit no desire to quit Next Appt Details Follow Up: 3 Months, Reason: bp Provider Name:Garrett hooper, 03/29/2025 03:15:00 PM, [address] [place] [address], [address], [phone], Provider Name:Garrett hooper, 12/27/2025 07:00:00 AM, [address] [place] [address], [address], [phone], Provider Name:Garrett hooper, 01/03/2026 03:30:00 PM, [address] [place] [address], [address], [phone], Progress Notes * Tima ISABEL LDOB: [birth year] (64 yo M)Acc No.[id number]:12/31/2024 Progress Notes Patient: Tima HYATT Number:[id number] Provider: Todd Ferreira MD :[id number] A ge:64 Y S ex:Male Date:12/31/2024 Address:[address] [place] [address], VIANNEY CRENSHAW [phone] Subjective: * Chief Complaints: * A NNUAL [...] PHQ-9 found negative result, no follow-up needed. C ommunication Needs: Communication Needs D oes the patient have a hearing impairment N o, D oes the patient have a vision impairment? Y es, I f yes, what is the vision impairment? G lasses, D oes the patient have a cognition impairment? N o. F all Risk: History H ave you had any falls with injury in the past year? N o, H ave you had two or more falls in the past year? N o. S KAROL Questions: SDOH Questions I n the past year have you been worried about losing housing? N o, I n the past year have you or any family members you live with been unable to get any of the following when it was really needed? Check all that apply: N one. S ymptom(s): patient is a 64 yo male here for annual visit with review of recewnt labs and follow up of chronic issues. * ROS: G eneral/Constitutional: Change in appetite [...] of concern. D enies P hotosensitivity. R brittany d enies. N eurologic: Dizziness d enies. F ainting d enies. H eadache?denies. * Medical History: * Surgical History: * Hospitalization/Major Diagno stic Procedure: * Family History: F ather: 56 yrs. M other: alive 85 yrs. 2 brother(s) - healthy. . father,lung [...] affeine: yes, frequency:, 3-4 cups per day. Children: no. Community involvements: no. Exercise: no. Home smoke detector use: yes. Housing: owning. Living with: family. Marital status: single. Occupation: works full-time. Pets: none. Travel outside of the [place]: no. * Medications: T akingLatanoprost 0.005 % Solution 1 drop into affected eye in the evening Ophthalmic Once a day ProAir HFA 108 (90 Base) MCG/ACT Aerosol Solution 1 puff as needed Inhalation every 4 hrs Gabapentin 300 MG Capsule TAKE 1 CAPSULE BY MOUTH TWICE A DAY ORALLY TWICE A DAY 90 DAYS Anoro Ellipta 62.5-25 MCG/ACT Aerosol Powder Breath Activated INHALE 1 PUFF INTO THE LUNGS EVERY DAY hydroCHLOROthiazide 25 MG Tablet TAKE 1 TABLET BY MOUTH EVERY DAY IN THE MORNING Valsartan 320 MG Tablet TAKE 1 TABLET BY MOUTH EVERY DAY Celecoxib 200 MG Capsule TAKE 1 CAPSULE BY MOUTH EVERY DAY WITH FOOD Taking Latanoprost 0.005 % Solution 1 drop into affected eye in the evening Ophthalmic Once a day Taking ProAir HFA 108 (90 Base) MCG/ACT Aerosol Solution 1 puff as needed Inhalation every 4 hrs Taking Gabapentin 300 MG Capsule TAKE 1 CAPSULE BY MOUTH TWICE A DAY ORALLY TWICE A DAY 90 DAYS Taking Anoro Ellipta 62.5-25 MCG/ACT Aerosol Powder Breath Activated INHALE 1 PUFF INTO THE LUNGS EVERY DAY Taking hydroCHLOROthiazide 25 MG Tablet TAKE 1 TABLET BY MOUTH EVERY DAY IN THE MORNING Taking Valsartan 320 MG Tablet TAKE 1 TABLET BY MOUTH EVERY DAY Taking Celecoxib 200 MG Capsule TAKE 1 CAPSULE BY MOUTH EVERY DAY WITH FOOD Not- Taking/PRNPantoprazole Sodium 40 MG Tablet Delayed Release 1 tablet Orally Once a day Ventolin HFA 108 (90 Base) MCG/ACT Aerosol Solution TAKE 1 TO 2 PUFFS EVERY 4 TO 6 HOURS NEEDEED FOR BREATHING Albuterol Sulfate HFA 108 (90 Base) MCG/ACT Aerosol Solution 2 puffs as needed Inhalation every 6 hrs Nasacort Allergy 24HR 55 MCG/ACT Aerosol 2 sprays in each nostril Nasally Once a day Albuterol Sulfate (2.5 MG/3ML) 0.083% Nebulization Solution 3 ml as needed Inhalation every 6 hrs Ventolin HFA * 108 (90 Base) MCG/ACT Aerosol Solution 2 puffs as needed Inhalation every 4 hrs Medication List reviewed and reconciled with the patientNot-Taking/PRN Pantoprazole Sodium 40 MG Tablet Delayed Release 1 tablet Orally Once a day Not-Taking/PRN Ventolin HFA 108 (90 Base) MCG/ACT Aerosol Solution TAKE 1 TO 2 PUFFS EVERY 4 TO 6 HOURS NEEDEED FOR BREATHING Not-Taking/PRN Albuterol Sulfate HFA 108 (90 Base) MCG/ACT Aerosol Solution 2 puffs as needed Inhalation every 6 hrs Not-Taking/PRN Nasacort Allergy 24HR 55 MCG/ACT Aerosol 2 sprays in each nostril Nasally Once a day Not-Taking/PRN Albuterol Sulfate (2.5 MG/3ML) 0.083% Nebulization Solution 3 ml as needed Inhalation every 6 hrs Not-Taking/PRN Ventolin HFA * 108 (90 Base) MCG/ACT Aerosol Solution 2 puffs as needed Inhalation every 4 hrs Medication List reviewed and reconciled with the patient * Allergies: L isinopril: coughIrbesartan: coughyes[Allergies Verified] Objective: * Vitals: H t: 67, Wt: 250, BMI:39.15, BP:144/86, Repeat BP:160/88, Wt-k.4. weight is up 7 pounds since 12-30-23. * P ast Orders: L ab:Microalbumin, Random (Order Date - 12/25/2024) (Collection Date & Time - 12/25/2024 07:15 AM) Value Reference Range Creatinine Urine 203.02 - mg/dL Microalbumin Urine 11.0 - mg/L Microalbum Creatinine Ratio Ur 5.4 <30 - ug/ mg cr L ab:Hemoglobin A1c (Order Date - 12/25/2024) (Collection Date & Time - 12/25/2024 07:15 AM) Value Reference Range Hemoglobin A1c % 5.2 <6.0 - % Estimated Average Glucose 103 - mg/dL L ab:Complete Blood Count Auto Diff (Order Date - 12/25/2024) (Collection Date & Time - 12/25/2024 07:15 AM) Value Reference Range White Blood Count 5.7 4.8-10.8 - X10*3/uL Red Blood Count 4.59 L 4.60-5.80 - X10*6/uL Hemoglobin 14.9 14.0-18.0 - g/dl Hematocrit 43.6 42.0-52.0 - % Mean Corpuscular Volume 95.0 80.0-98.0 - fL Mean Corpuscular Hemoglobin 32.5 27.0-33.0 - pg Mean Corpuscular HGB Conc 34.2 31.0-36.0 - g/ dl Red Cell Distribution Width 12.6 11.0-16.0 - % Platelet Count 226 160-400 - X10*3/uL Mean Platelet Volume 10.1 9.4-12.4 - fL Neutrophils Percent Auto 56.9 45-73 - % Imm Gran Pct Auto 0.7 H 0.0-0.4 - % Lymphocytes Percent Auto 27.2 20-40 - % Monocytes Percent Auto 9.1 2-11 - % Eosinophils Percent Auto 4.9 H 0-4 - % Basophils Percent Auto 1.2 0-2 - % NRBC Pct Auto 0.0 0.0-0.2 - /100WBC Neutrophils Absolute Auto 3.2 2.0-8.3 - x10* 3/uL Imm Gran Abs Auto 0.04 H 0.00-0.03 - X10*3/uL Lymphocytes Absolute Auto 1.6 1.2-4.9 - X10* 3/uL Monocytes Absolute Auto 0.5 0.1-1.2 - X10*3/ uL Eosinophils Absolute Auto 0.3 0.0-0.4 - X10* 3/uL Basophils Absolute Auto 0.1 0.0-0.2 - X10*3/ uL NRBC Abs Auto 0.000 0.0-0.012 - X10*3/uL L ab:UA ClnCatch+Micro w/rflx Cult (Order Date - 12/25/2024) (Collection Date & Time - 12/25/2024 07:15 AM) Value Reference Range Color Urine Yellow - Appearance Urine Clear - PH 6.5 5.0-9.0 - Glucose Urine UA Negative Negative - mg/dL Urine Blood Negative Negative - Specific [place] - Urine 1.025 1.005-1.025 - Urine Protein Trace Neg-Trace - mg/dL Urine Ketones Negative Negative - mg/dL Nitrite Urine Negative Negative - Leukocyte Esterase Urine Negative Negative - RBC Urine 0-2 0-2 - /HPF WBC Urine 0-5 0-5 - /HPF Squamous Epithelial Cell Urine 0-2 0-2 - /HP F Bacteria Urine None Seen None Seen - Hyaline Casts Urine 0-2 0-2 - /LPF L ab:Comprehensive [place]. Panel Fast (Order Date - 12/25/2024) (Collection Date & Time - 12/25/2024 07:15 AM) Value Reference Range Sodium 141 135-145 - mmol/L Bilirubin Total 0.7 0.0-1.0 - mg/dL Aspartate Amino Transferase 23 5-37 - U/L Alanine Aminotransferase 24 0-40 - U/L Total Protein 7.3 6.5-8.0 - g/dL Albumin Level 4.4 3.5-5.0 - g/dL Alkaline Phosphatase 57 39-117 - U/L Potassium 3.9 3.3-5.1 - mmol/L Chloride 109 H 96-108 - mmol/L Carbon Dioxide 23 22-29 - mmol/L Anion Gap 13 12-20 - Blood Urea Nitrogen 23 H 9-16 - mg/dL Creatinine 0.89 0.5-1.4 - mg/dL Estimated Glomerular Filt Rate > 60 - Glucose Fasting 105 H 60-99 - mg/dL Calcium 8.9 8.4-10.2 - mg/dL L ab:Lipid Panel (Order Date - 12/25/2024) (Collection Date & Time - 12/25/2024 07:15 AM) Value Reference Range Triglycerides 83 <150 - mg/dL Cholesterol 198 <200 - mg/dL LDL Cholesterol Calculated 126 H <100 - mg/dL HDL Cholesterol 56 >40 - mg/dL L ab:PSA,Total (Free>4and<10) (Order Date - 12/25/2024) (Collection Date & Time - 12/25/2024 07:15 AM) Value Reference Range PSA,Total (Free>4and<10) 0.86 0.00-4.00 - ng/ mL * Examination: G eneral Examination: GENERAL APPEARANCE: [...] prostate normal, stool guaiac negative. MALE GENITOURINARY: n ot examined. EXTREMITIES: n o clubbing, cyanosis, or edema. NEUROLOGIC: n onfocal, motor strength normal upper and lower extremities, sensory exam intact. Assessment: * Assessment: 1. A nnual physical exam - Z00.00 (Primary) 2 . P anlobular emphysema - J43.1 3 . E ssential hypertension - I10 4 . S moker unmotivated to quit - F17.200 5 . P rediabetes - R73.09 6 . C olon cancer screening - Z12.11 7 . D epression screening - Z13.31 Plan: * Treatment: 2. P anlobular emphysema Refill ProAir HFA Aerosol Solution, 108 (90 Base) MCG/ACT, 1 puff as needed, Inhalation, every 4 hrs, 30 days, 1, Refills 11. 3. E ssential hypertension Start Valsartan-hydroCHLOROthiazide Tablet, 320-25 MG, 1 tablet, Orally, Once a day, 30 day(s), 30.? 4. S moker unmotivated to quit Stop hydroCHLOROthiazide Tablet, 25 MG, TAKE 1 TABLET BY MOUTH EVERY DAY IN THE MORNING; S top Valsartan Tablet, 320 MG, TAKE 1 TABLET BY MOUTH EVERY DAY. Notes: no desire to quit * Procedure Codes: * Preventive Medicine: COPD Care Plan: P atient Lifestyle Goals R elieve symptoms and improve quality of life. T reatment Goals t [facility] exactly as precribed and plan for RX refills. B arriers N o Specific barriers. S elf-Managment Plan E at a healthy diet. E xpected Outcome m anaging symptoms like dyspnea (breathlessness). * Follow Up: 3 Months (Reason: bp) * * Sign off status: Completed true * Provider: Todd Ferreira MD Date: 0 12/31/2024 Generated for Yuni harman/Claudia/Mukund on: 06:25 PM EDT History and Physical Notes * HPI (History of Present Illness) Category Sub-Category Detail Notes Category Not es Symptom(s) patient is a 64 yo male here for annual visit with review of recewnt labs and follow up of chronic issues Depression Screening PHQ-9 Little inte rest or pleasure in doing things: Not at all Feeling down, depressed, or hopeless: No t [...] really needed? Check all that apply:: None Fall Risk History Have you had any falls with injury i n the past year?: No Have you had two or more falls in the year?: No Communication Needs Communication Needs Does the patient [...] clubbing, cyanosi s, or edema MALE GENITOURINARY: not examined RECTAL EXAM: normal tone, no exte rnal hemorrhoids, no masses palpable, prostate normal, stool guaiac negative ORAL CAVITY: mucosa moist
--- NOTE | ~2025-03-08 | CT_ITS ---
CLINICAL HISTORY: F17.210 - Nicotine dependence, cigarettes, uncomplicated CT lung cancer screening (LDCT) Comparison: CT/REG/NV/SR - CT LUNG SCREENING - 12/16/23 16:33 EDT Technique: Axial CT images of the chest using low-dose technique. Referring provider counseled the patient on shared decision-making for LDCT screening. Additional counseling was provided on smoking cessation. Effective radiation dose total: DLP 56.7 mGycm, CTDIvol 1.9 mGy. Findings: The thyroid gland appears normal. There is no mediastinal, hilar, axillary lymphadenopathy. The heart is normal in size. There is no pericardial effusion. The lungs are clear. No suspicious pulmonary nodule is identified. Limited examination of the upper abdomen demonstrates no significant abnormality. Tpob-ru-jlwoiuud degenerative changes are seen in the spine. No acute osseous abnormality is identified. No aggressive lytic or blastic lesion is seen. IMPRESSION: No suspicious pulmonary nodule is identified (Lung RADS 1). Recommend continued annual low-dose screening CT chest in 12 months. This document has been electronically signed by: Devon Edwards on 03/10/2025 07:39:08
--- OUTSIDE RECORDS SUMMARY | 2025-03-08 18:25 | XMS_ITS | Patient Health Record ---
Author Organization Garrett Ferreira MD Address [address] [place], [place] [id number] Care Team Providers Care Research Anthropologist Name Role Phone Garrett Ferreira Primary Care Provider [phone] Allergies Allergen (clinical drug ingredient) Drug/Non Drug Allergy documented on EMR Reaction Allergy Type Onset Date Status lisinopril Lisinopril cough Drug Allergy Activ e irbesartan Irbesartan cough Drug Allergy Activ e Results Component Value Reference Range Notes Complete Blood Count Auto Di ff Reviewed date:12/26/2024 03:37:11 PM Interpretation: Performing Lab:[facility], [address] [place] [phone] Notes/Report: White Blood Count 5.7 4.8-10.8 X10*3/uL [...] NRBC Abs Auto 0.000 0.0-0.012 X10*3/uL Comprehensive [place]. Panel Fa st Reviewed date:12/25/2024 09:30:17 PM Interpretation: Performing Lab:[facility], [address] [place] [phone] Notes/Report: Sodium 141 135-145 mmol/L Potassium 3.9 [...] Panel Reviewed date:12/25/2024 09:15:55 PM Interpretation: Performing Lab:[address] [phone] Notes/Report: Triglycerides 83 <150 mg/dL Desirable Triglyceride: [...] (Free>4and<10) Reviewed date:12/25/2024 09:15:21 PM Interpretation: Performing Lab:[address] [phone] Notes/Report: PSA,Total (Free>4and<10) 0.86 0.00-4.00 ng/mL A [...] Random Reviewed date:12/25/2024 09:15:45 PM Interpretation: Performing Lab:[facility], [address] [place] [phone] Notes/Report: Creatinine Urine 203.02 Microalbumin Urine 11.0 Microalbum/Creatinine Ratio Ur 5.4 <30 ug/mg cr Albumin/Creatinine Ratio Reference Ranges: Normal: < 30 ug/mg creatinine Microalbuminuria: 30 - 300 ug/mg creatinine Clinical Albuminuria: > 300 ug/mg creatinine Hemoglobin A1c Reviewed date:12/25/2024 09:15:12 PM Interpretation: Performing Lab:[facility], [address] [place] [phone] Notes/Report: Hemoglobin A1c % 5.2 <6.0 % [...] average glucose, using the formula of the [id number]-Wmluxxr Average Glucose study (ADAG), Diabetes Care, Vol.31,#8, Jan. 2007 UA ClnCatch+Micro w/rflx Cul t Reviewed date:12/27/2024 09:27:40 AM Interpretation: Performing Lab:[facility], [address] [place] [phone] Notes/Report: Urine, Clean Catch Color Urine Yellow Appearance Urine Clear PH 6.5 5.0-9.0 Glucose Urine UA Negative Negative mg/dL Urine Blood Negative Negative Specific [place] - Urine 1.025 1.005-1.025 Urine Protein Trace Neg-Trace mg/dL Urine Ketones Negative Negative mg/dL Nitrite Urine Negative Negative Leukocyte Esterase Urine Negative Negative RBC Urine 0-2 0-2 /HPF WBC Urine 0-5 0-5 /HPF Squamous Epithelial Cell Urine 0-2 0-2 /HPF Bacteria Urine None Seen None Seen Hyaline Casts Urine 0-2 0-2 /LPF Reason For Referral No Information Medications Medication SIG (Take, Route, Frequency, Duration) Notes Start Date End Date Status Gabapentin 300 MG TAKE 1 CAPSULE BY MO UTH TWICE A DAY for 90 Active Pantoprazole Sodium 40 MG 1 tablet Orall y Once a day for 30 day(s) Not-Taking Celecoxib 200 MG TAKE 1 CAPSULE BY MO UTH EVERY DAY WITH FOOD for 30 Active Albuterol Sulfate HFA 108 (90 Base) MCG/ACT 2 puffs as needed Inhalation every 6 hrs Not-Takin g Ventolin HFA 108 (90 Base) MCG/ACT TAKE 1 TO 2 PUFFS EVERY 4 TO 6 HOURS NEEDEED FOR BREATHING for 17 Not-Taking ProAir HFA 108 (90 Base) MCG/ACT 1 puff as needed Inhalation every 4 hrs for 30 days 12/08/2020 Active Anoro Ellipta 62.5-25 MCG/ACT INHALE 1 PUFF INTO THE LUNGS EVERY DAY for 30 Active Nasacort Allergy 24HR 55 MCG/ACT 2 sprays in each nostril Nasally Once a day Not-Taking Ventolin HFA * 108 (90 Base) MCG/ACT 2 puffs as needed Inhalation every 4 hrs for 17 Not-Taking Latanoprost 0.005 % 1 drop into affected eye in the evening Ophthalmic Once a day Active Albuterol Sulfate (2.5 MG/3ML) 0.083% 3 ml as needed Inhalation every 6 hrs Not-Jhonathanin g Valsartan-hydroCHLOROthia zide 320-25 MG TAKE 1 TABLET BY MOUTH EVERY DAY FOR 30 DAYS for 30 Active Immunizations Vaccine Route Administration [...] Problem Status W/U Status Risk Notes Problem 2546936 Panlobular emphysema (J43.1) Active confirmed Problem Disorder of lumbar disc (726412180) Lumbar disc disease (M51.9) Active confirmed Problem 61613931 Essential hypertension (I10) Active confirmed Problem 0278685 Prediabetes (R73.09) Active confirmed Problem 160117214 History of lymphocytosis (Z86.2) Active confirmed Problem 18807441 MICHAEL (obstructive sleep apnea) (G47.33) Active confirmed Problem 801515857 BMI 39.0-39.9,adult (Z68.39) Active confirmed Problem 33365870 Smoker unmotivated to quit (F17.200) Active confirmed Problem 304759206 COPD with exacerbation (J44.1) Active confirmed Problem 39686237 Muscle twitching (R25.3) Active confirmed Problem 34979374 Hyperplastic polyp of sigmoid colon (K63.5) Active confirmed Vital Signs Blood pressure diastolic 86 mm Hg 12/31/2024 sidney ght is up 7 pounds since 12-30-23 Height 67 in 12/31/2024 weight is up 7 pounds since 12-30-23 Blood pressure systolic 144 mm Hg 12/31/2024 weig ht is up 7 pounds since 12-30-23 Weight 250 lbs 12/31/2024 weight is up 7 pounds since 12-30-23 BMI 39.15 kg/m2 12/31/2024 weight is up 7 pounds since 12-30-23 Encounters Encounter Location Date Provider Diagnosis Garrett Ferreira MD [address] [place] [address] Drive [address] [place] [phone] 12/25/2024 Garrett Ferreira Blood tests for routine general physical examination Z00.00 ; Essential hypertension I10 ; History of lymphocytosis Z86.2 and Prediabetes R73.09 Garrett Ferreira MD [address] [place] [address] Drive [address] [place] [phone] 12/31/2024 Garrett Ferreira Panlobular emphysema J43.1 ; Annual physical exam Z00.00 ; Essential hypertension I10 ; Smoker unmotivated to quit F17.200 ; Prediabetes R73.09 ; Colon cancer screening Z12.11 and Depression screening Z13.31 Assessments Encounter Date Diagnosis (ICD Code) Assessment Notes Treatment Notes Treatment Clinical Notes Section Notes 12/25/2024 Blood tests for routine general physical examination (ICD-10 - Z00.00) 12/31/2024 Panlobular emphysema (ICD-10 - J43.1) 12/31/2024 Annual physical exam (ICD-10 - Z00.00) Labs reviewed and discussed with patient 12/25/2024 Essential hypertension (ICD-10 - I10) 12/31/2024 Essential hypertension (ICD-10 - I10) 12/25/2024 History of lymphocytosis (ICD-10 - Z86.2) 12/31/2024 Smoker unmotivated to quit (ICD-10 - F17.200) no desire to quit 12/25/2024 Prediabetes (ICD-10 - R73.09) 12/31/2024 Prediabetes (ICD-10 - R73.09) 12/31/2024 Colon cancer screening (ICD-10 - Z12.11) 12/31/2024 Depression screening (ICD-10 - Z13.31) Plan Of Treatment Pending Test Test Name Order Date Electrocardiogram (EKG) 10/04/2015 Next Appt Details Provider Name:Garrett hooper, 03/29/2025 03:15:00 PM, [address], [address], [place], [phone], Provider Name:Garrett Bowen sandie, 12/27/2025 07:00:00 AM, [address], [address], [place], [place], [phone], Provider Name:Garrett Bowen sandie, 01/03/2026 03:30:00 PM, [address], [address], [place], [phone], Insurance Providers Payer Name Payer Address Payer Phone Subscriber Number Group Number Insured Name Patient Relationship to Insured Coverage Start Date Coverage End Date [facility] [address] [facility] [address] [place] [phone] [id number] Tima Isabel Self - patient is the insured Medical (General) History Medical History History ICD Code colonoscopy2008 W/ Dr Augustus ramirez due in 2019. Had colonoscopy 03/24/19 Dr Matute repeat in 10 years
== END 2025-03-08 16:10 | disposition home or self-care (01) ==
LOC: HO.CT 16:09
PROVIDERS: PCP Internal Medicine; Visit Provider Physician Assistant Medical
DX: Z12.2 Encounter for screening for malignant neoplasm of respiratory organs (principal); F17.210 Nicotine dependence, cigarettes, uncomplicated
CPT/HCPCS: 71271

== ENCOUNTER → 2025-03-08 16:12 | Outpatient (BNV) | payer OTHER, SELFPAY | PROVIDERS: PCP Internal Medicine; Visit Provider Radiology Vascular & Interventional Radiology | DX: F17.210 Nicotine dependence, cigarettes, uncomplicated (principal) | CPT/HCPCS: 71271 ==